=== PATIENT | male | born 1940 | race African-American/Black ===

== ENCOUNTER 2016-08-27 08:53 | Inpatient (IN) | payer OTHER ==
--- NOTE | 2016-08-27 09:17 | HP ---
CIWA Score - CIWA Score Nausea/Vomitin-Mild Nausea/No Vomiting Muscle Tremors: 4-Moderate,w/Arms Extend Anxiety: 4-Mod. Anxious/Guarded Agitation: 1-Slight > Activity Paroxysmal Sweats: 1-Minimal Palms Moist Orientation: 1-Uncertain about Date Tacttile Disturbances: 1-Very Mild Itch/Numbness Auditory Disturbances: 2-Mild Harshness/Frighten Visual Disturbances: 1-Very Mild Sensitivity Headache: 1-Very Mild CIWA-Ar Total Score: 17 Admission ROS S - HPI Chief Complaint: I want to stop drinking Allergies/Adverse Reactions: Allergies Allergy/AdvReac Type Severity Reaction Status Date / Time Penicillins Allergy Severe Itching Verified 09/17/12 19:37 History of Present Illness: 75 yo gentleman here for detox from alcohol - last in detox [facility] several months ago. Denies seizures but does have memory problems. Has order of protection by due to his drinking. Exam Limitations: Clinical Condition - Ebola screening Have you traveled outside of the country in the last 21 days: No Have you had contact with anyone from an Ebola affected area: No Do you have a fever: No - Review of Systems Constitutional: Loss of Appetite, Night Sweats, Changes in sleep EENT: reports: No Symptoms Reported Respiratory: reports: No Symptoms reported Cardiac: reports: No Symptoms Reported GI: reports: Poor Appetite : reports: Frequency Musculoskeletal: reports: No Symptoms Reported Integumentary: reports: No Symptoms Reported Neuro: reports: No Symptoms reported Endocrine: reports: No Symptoms Reported Hematology: reports: No Symptoms Reported Psychiatric: reports: Judgement Intact, Mood/Affect Appropiate Other Systems: Reviewed and Negative Patient History - Patient Medical History Hx Asthma: No Hx Chronic Obstructive Pulmonary Disease (COPD): No Hx Cardiac Disorders: No Hx Hypertension: No Hx Seizures: No Hx Diabetes: No Hx Gastrointestinal Disorders: No Hx Genitourinary Disorders: No Hx Sexually Transmitted Disorders: No Hx Renal Disease (ESRD): No Hx Human Immunodeficiency Virus (HIV): No Hx Hepatitis C: No Hx Depression: No Hx Suicide Attempt: No Hx Schizophrenia: No - Patient Surgical History Past Surgical History: No Hx Neurologic Surgery: No Hx Cataract Extraction: No Hx Cardiac Surgery: No Hx Lung Surgery: No Hx Breast Surgery: No Hx Breast Biopsy: No Hx Abdominal Surgery: Yes (ABD. HERNIA REPAIR IN ) Hx Appendectomy: No Hx Cholecystectomy: No Hx Genitourinary Surgery: No Hx Section: No Hx Orthopedic Surgery: No Anesthesia Reaction: No - PPD History Previous Implant?: Yes Documented Results: Negative w/proof Implanted On Prior [facility] Admission?: No Date: 09/19/12 PPD to be Administered?: Yes - Reproductive History Patient is a Female of Child Bearing Age (11 -55 yrs old): No (male) - Smoking Cessation Smoking history: Current every day smoker Have you smoked in the past 12 months: Yes Aproximately how many cigarettes per day: 5 Hx Chewing Tobacco Use: No Initiated information on smoking cessation: Yes 'Breaking Loose' booklet given: 08/27/16 (give on floor) - Substance & Tx. History Hx Alcohol Use: Yes Hx Substance Use: No Substance Use Type: Alcohol Hx Substance Use Treatment: Yes (detox [facility] February 2016) - Substances Abused Alcohol Route: Oral Frequency: Daily Amount used: twelve 8oz beers; 1/5 liquor; 1 pint wine Age of first use: 13 Date of Last Use: 08/27/16 Family Disease History - Family Disease History Family Disease History: CA: Brother (one colon cancer - etoh), Other: Grandparent (snuff and beer - ), Father (no contact), Mother ( - old age, etoh), Brother Admission Physical Exam BHS - Vital Signs Vital Signs: Vital Signs Period Temp Pulse Resp BP Sys/Guzmán Pulse Ox Last 24 Hr 98.2 F 94 20 157/97 - Physical General Appearance: Yes: Nourished, Appropriately Dressed, Mild Distress HEENTM: Yes: Hearing grossly Normal, Normal ENT Inspection, Normocephalic, Normal Voice, Other Respiratory: Yes: Normal Breath Sounds, No Respiratory Distress Neck: Yes: No masses,lesions,Nodules, Supple Breast: Yes: Breast Exam Deferred Cardiology: Yes: Regular Rhythm, Regular Rate Abdominal: Yes: Non Tender, Soft Genitourinary: Yes: Frequency Back: Yes: Normal Inspection Musculoskeletal: Yes: full range of Motion, Gait Steady Extremities: Yes: Normal Inspection, Normal Range of Motion, Non-Tender Neurological: Yes: Fully Oriented, Alert, Normal Mood/Affect Integumentary: Yes: Normal Color, Warm Lymphatic: Yes: Within Normal Limits - Diagnostic (1) Alcohol dependence Current Visit: Yes Status: Chronic (2) Nicotine dependence Current Visit: Yes Status: Chronic Qualifiers: Nicotine product type: cigarettes Substance use status: uncomplicated Qualified Code(s): F17.210 - Nicotine dependence, cigarettes, uncomplicated Cleared for Admission [facility] - Detox or Rehab [facility] Level of Care: Medically Managed Detox Regimen/Protocol: Librium S Breath Alcohol Content Breath Alcohol Content: 0.061
[2016-08-27 09:18] VITALS: BMI 24.1
[2016-08-27] MEDS ORDERED: chlordiazePOXIDE HCL 25 MG CAPSULE PO ONE ×2 (09:37→12:45)
[2016-08-27] MEDS ORDERED: chlordiazePOXIDE HCL 25 MG CAPSULE PO PRN (09:37)
[2016-08-27] MEDS ORDERED: MAG HYDROX/AL HYDROX/SIMETH 30 ML UNIT-DOSE CUP PO PRN (09:37)
[2016-08-27] MEDS ORDERED: LOPERAMIDE HCL 2 MG CAPSULE PO PRN (09:37)
[2016-08-27] MEDS ORDERED: MAGNESIUM CITRATE 300 ML BOTTLE PO PRN (09:37)
[2016-08-27] MEDS ORDERED: MAGNESIUM HYDROX 2400MG/30ML ORAL SUSPENSION 30 ML CUP PO PRN (09:37)
[2016-08-27] MEDS ORDERED: hydrOXYzine PAMOATE 50 MG CAPSULE (FP) PO PRN (09:37)
[2016-08-27] MEDS: PRENATAL VITAMINS W/ FOLIC ACID TABLET (FP) PO SCH (12:43)
[2016-08-27] MEDS: chlordiazePOXIDE HCL 25 MG CAPSULE PO SCH ×2 (17:23→22:14)
--- NOTE | 2016-08-27 18:13 | CONSULT ---
[facility] Psychiatric Consult - Data Date of interview: 08/27/16 Admission source: [facility] Identifying data: Second admission to [facility] for this 75 y/o AA male seeking detox treatment for alcohol dependence.Patient is childless,domiciled, unemployed and supported on SSI benefits. Substance Abuse History: - Smoking Cessation. Smoking history: Current every day smoker. Have you smoked in the past 12 months: Yes. Aproximately how many cigarettes per day: 5. Hx Chewing Tobacco Use: No. Initiated information on smoking cessation: Yes. 'Breaking Loose' booklet given: 08/27/16 (give on floor ). - Substance & Tx. History. Hx Alcohol Use: Yes. Hx Substance Use: No. Substance Use Type: Alcohol. Hx Substance Use Treatment: Yes (detox [facility] February 2016). - Substances Abused. Alcohol. Route: Oral. Frequency: Daily. Amount used: twelve 8oz beers; 1/5 liquor; 1 pint wine. Age of first use: 13. Date of Last Use: 08/27/16 Medical History: Good general health.Remote history of inguinal herniorraphy ( in the 1969's). Psychiatric History: Patient denies. Physical/Sexual Abuse/Trauma History: Patient denies. Mental Status Exam - Mental Status Exam Alert and Oriented to: Time, Place, Person Cognitive Function: Good Patient Appearance: Well Groomed (edentulous) Mood: Hopeful, Euthymic (friendly) Affect: Appropriate, Normal Range Patient Behavior: Fatigued, Appropriate, Cooperative Speech Pattern: Clear Voice Loudness: Normal Thought Process: Goal Oriented Thought Disorder: Not Present Hallucinations: Denies Suicidal Ideation: Denies Homicidal Ideation: Denies Insight/Judgement: Poor Appetite: Good (observed finishing his dinner;ate his entire portion) Muscle strength/Tone: Normal Gait/Station: Normal Psychiatric Findings - Problem List ([place] 1, 2,3) (1) Alcohol dependence Current Visit: Yes Status: Acute (2) Nicotine dependence Current Visit: Yes Status: Acute Qualifiers: Nicotine product type: cigarettes Substance use status: uncomplicated Qualified Code(s): F17.210 - Nicotine dependence, cigarettes, uncomplicated - Initial Treatment Plan Initial Treatment Plan: Psychoeducation.Detoxification in progress.Observation.
[2016-08-27 19:27] LABS: URINE APPEARANCE CLEAR; URINE BILIRUBIN NEGATIVE (NEGATIVE); URINE BLOOD NEGATIVE (NEGATIVE); URINE COLOR YELLOW; URINE GLUCOSE (UA) NEGATIVE (NEGATIVE); URINE KETONE NEGATIVE (NEGATIVE); URINE LEUK ESTERASE NEGATIVE (NEGATIVE); URINE NITRITE NEGATIVE (NEGATIVE); URINE PROTEIN NEGATIVE (NEGATIVE); URINE UROBILINOGEN NEGATIVE E.U./dl (0.2-1.0)
[2016-08-27] MEDS: diphenhydrAMINE HCL 50 MG CAPSULE PO PRN (22:14)
[2016-08-27] MEDS: THIAMINE HCL 100 MG TABLET (FP) PO SCH (22:14)
[2016-08-28] MEDS: chlordiazePOXIDE HCL 25 MG CAPSULE PO SCH ×4 (05:31→22:10)
[2016-08-28] MEDS: ACETAMINOPHEN 325 MG TABLET (FP) PO PRN ×2 (05:33→22:10)
[2016-08-28] MEDS: PRENATAL VITAMINS W/ FOLIC ACID TABLET (FP) PO SCH (10:15)
[2016-08-28 10:28] LABS: MCH 30.8 pg (25.7-33.7); MCHC 33.7 g/dl (32.0-35.9); MEAN CELL VOLUME 91.4 fl (80-96); MEAN PLT VOLUME 8.1 fl (7.5-11.1); PLATELET COUNT 261 K/MM3 (134-434); RDW 15.1 % (11.9-15.9); WHITE BLOOD COUNT 5.6 K/mm3 (4.0-10.0)
[2016-08-28 10:52] LABS: ALBUMIN 3.9 g/dl (3.4-5.0); ALK PHOS 103 U/L (45-117); ANION GAP 13 (8-16); BILIRUBIN,TOTAL 1.1 mg/dL (0.2-1.0); CALCIUM 9.3 mg/dL (8.5-10.1); CO2 26 mmol/L (21-32); CREATININE 0.7 mg/dL (0.7-1.3); GLUCOSE,RANDOM 93 mg/dL (74-106); SGOT/AST 45 U/L (15-37); SGPT/ALT 26 U/L (12-78); TOT PROT 7.4 g/dl (6.4-8.2)
--- NOTE | 2016-08-28 14:40 | PN ---
S CIWA - CIWA Score Nausea/Vomitin Muscle Tremors: 4-Moderate,w/Arms Extend Anxiety: 4-Mod. Anxious/Guarded Agitation: 3 Paroxysmal Sweats: No Perspiration Orientation: 0-Oriented Tacttile Disturbances: 0-None Auditory Disturbances: 0-None Visual Disturbances: 0-None Headache: 3-Moderate CIWA-Ar Total Score: 16 BHS Progress Note (SOAP) Subjective: Headache, nausea, sweating, tremor, interrupted sleep Objective: 08/28/16 14:38 Last Vital Signs Temp Pulse Resp BP Pulse Ox 98.1 F 104 H 18 142/77 08/28/16 06:41 08/28/16 06:41 08/28/16 06:41 08/28/16 06:41 Laboratory Tests 08/27/16 08/28/16 08/28/16 Unknown 08:00 08:00 WBC 5.6 RBC 4.44 Hgb 13.7 D Hct 40.6 MCV 91.4 MCHC 33.7 RDW 15.1 D Plt Count 261 MPV 8.1 Sodium 139 Potassium 3.7 Chloride 100 Carbon Dioxide 26 Anion Gap 13 BUN 10 Creatinine 0.7 Creat Clearance w eGFR > 60 Random Glucose 93 Calcium 9.3 Total Bilirubin 1.1 H AST 45 H D ALT 26 Alkaline Phosphatase 103 Total Protein 7.4 Albumin 3.9 Urine Color Yellow Urine Appearance Clear Urine pH 6.0 Ur Specific [place] 1.010 Urine Protein Negative Urine Glucose (UA) Negative Urine Ketones Negative Urine Blood Negative Urine Nitrite Negative Urine Bilirubin Negative Urine Urobilinogen Negative Ur Leukocyte Esterase Negative RPR Titer 08/28/16 08:00 WBC RBC Hgb Hct MCV MCHC RDW Plt Count MPV Sodium Potassium Chloride Carbon Dioxide Anion Gap BUN Creatinine Creat Clearance w eGFR Random Glucose Calcium Total Bilirubin AST ALT Alkaline Phosphatase Total Protein Albumin Urine Color Urine Appearance Urine pH Ur Specific [place] Urine Protein Urine Glucose (UA) Urine Ketones Urine Blood Urine Nitrite Urine Bilirubin Urine Urobilinogen Ur Leukocyte Esterase RPR Titer Nonreactive Labs noted Assessment: 08/28/16 14:39 Withdrawal symptoms Plan: Continue detox
[2016-08-28] MEDS: diphenhydrAMINE HCL 50 MG CAPSULE PO PRN (22:10)
[2016-08-28] MEDS: THIAMINE HCL 100 MG TABLET (FP) PO SCH (22:10)
[2016-08-29] MEDS: chlordiazePOXIDE HCL 25 MG CAPSULE PO SCH ×2 (05:47→10:19)
[2016-08-29] MEDS: PRENATAL VITAMINS W/ FOLIC ACID TABLET (FP) PO SCH (10:19)
--- NOTE | 2016-08-29 10:33 | PN ---
S CIWA - CIWA Score Nausea/Vomitin-No Nausea/No Vomiting Muscle Tremors: 3 Anxiety: 4-Mod. Anxious/Guarded Agitation: 3 Paroxysmal Sweats: 3 Orientation: 0-Oriented Tacttile Disturbances: 0-None Auditory Disturbances: 0-None Visual Disturbances: 0-None Headache: 0-None Present CIWA-Ar Total Score: 13 BHS Progress Note (SOAP) Subjective: Anxiety,tremors,sweating,interrupted sleep,restless Objective: 08/29/16 10:31 Vital Signs - 8 hr 08/29/16 08/29/16 08/29/16 03:30 06:25 09:37 Temperature 97.1 F L 97 F L Pulse Rate 90 99 H Respiratory 18 18 18 Rate Blood Pressure 136/79 119/67 Laboratory Tests 08/27/16 08/28/16 08/28/16 Unknown 08:00 08:00 WBC 5.6 RBC 4.44 Hgb 13.7 D Hct 40.6 MCV 91.4 MCHC 33.7 RDW 15.1 D Plt Count 261 MPV 8.1 Sodium 139 Potassium 3.7 Chloride 100 Carbon Dioxide 26 Anion Gap 13 BUN 10 Creatinine 0.7 Creat Clearance w eGFR > 60 Random Glucose 93 Calcium 9.3 Total Bilirubin 1.1 H AST 45 H D ALT 26 Alkaline Phosphatase 103 Total Protein 7.4 Albumin 3.9 Urine Color Yellow Urine Appearance Clear Urine pH 6.0 Ur Specific [place] 1.010 Urine Protein Negative Urine Glucose (UA) Negative Urine Ketones Negative Urine Blood Negative Urine Nitrite Negative Urine Bilirubin Negative Urine Urobilinogen Negative Ur Leukocyte Esterase Negative RPR Titer 08/28/16 08:00 WBC RBC Hgb Hct MCV MCHC RDW Plt Count MPV Sodium Potassium Chloride Carbon Dioxide Anion Gap BUN Creatinine Creat Clearance w eGFR Random Glucose Calcium Total Bilirubin AST ALT Alkaline Phosphatase Total Protein Albumin Urine Color Urine Appearance Urine pH Ur Specific [place] Urine Protein Urine Glucose (UA) Urine Ketones Urine Blood Urine Nitrite Urine Bilirubin Urine Urobilinogen Ur Leukocyte Esterase RPR Titer Nonreactive labs noted Assessment: 08/29/16 10:32 Withdrawal sx Plan: Continue detox
[2016-08-29] MEDS: chlordiazePOXIDE 5 MG CAPSULE PO SCH ×2 (17:46→22:11)
[2016-08-29] MEDS: ACETAMINOPHEN 325 MG TABLET (FP) PO PRN (17:48)
[2016-08-29] MEDS: diphenhydrAMINE HCL 50 MG CAPSULE PO PRN (22:11)
[2016-08-29] MEDS: THIAMINE HCL 100 MG TABLET (FP) PO SCH (22:11)
[2016-08-30] MEDS: chlordiazePOXIDE 5 MG CAPSULE PO SCH ×2 (05:26→10:16)
[2016-08-30] MEDS: guaiFENesin/D-METHORPHAN HB 10 ML UNIT-DOSE CUPS PO PRN (05:26)
[2016-08-30] MEDS: PRENATAL VITAMINS W/ FOLIC ACID TABLET (FP) PO SCH (10:16)
--- NOTE | 2016-08-30 10:22 | PN ---
BHS Progress Note (SOAP) Subjective: Sweating,interrupted sleep,restless Objective: 08/30/16 10:21 Vital Signs - 8 hr 08/30/16 08/30/16 06:09 09:29 Temperature 99.1 F 98.7 F Pulse Rate 97 H 101 H Respiratory 18 20 Rate Blood Pressure 144/78 160/85 Laboratory Tests 08/27/16 08/28/16 08/28/16 Unknown 08:00 08:00 WBC 5.6 RBC 4.44 Hgb 13.7 D Hct 40.6 MCV 91.4 MCHC 33.7 RDW 15.1 D Plt Count 261 MPV 8.1 Sodium 139 Potassium 3.7 Chloride 100 Carbon Dioxide 26 Anion Gap 13 BUN 10 Creatinine 0.7 Creat Clearance w eGFR > 60 Random Glucose 93 Calcium 9.3 Total Bilirubin 1.1 H AST 45 H D ALT 26 Alkaline Phosphatase 103 Total Protein 7.4 Albumin 3.9 Urine Color Yellow Urine Appearance Clear Urine pH 6.0 Ur Specific [place] 1.010 Urine Protein Negative Urine Glucose (UA) Negative Urine Ketones Negative Urine Blood Negative Urine Nitrite Negative Urine Bilirubin Negative Urine Urobilinogen Negative Ur Leukocyte Esterase Negative RPR Titer 08/28/16 08:00 WBC RBC Hgb Hct MCV MCHC RDW Plt Count MPV Sodium Potassium Chloride Carbon Dioxide Anion Gap BUN Creatinine Creat Clearance w eGFR Random Glucose Calcium Total Bilirubin AST ALT Alkaline Phosphatase Total Protein Albumin Urine Color Urine Appearance Urine pH Ur Specific [place] Urine Protein Urine Glucose (UA) Urine Ketones Urine Blood Urine Nitrite Urine Bilirubin Urine Urobilinogen Ur Leukocyte Esterase RPR Titer Nonreactive labs noted Assessment: 08/30/16 10:21 Withdrawal sx. Plan: Continue detox
[2016-08-30] MEDS: chlordiazePOXIDE HCL 10 MG CAPSULE PO SCH ×2 (17:27→22:14)
[2016-08-30] MEDS: ACETAMINOPHEN 325 MG TABLET (FP) PO PRN (18:58)
[2016-08-30] MEDS: THIAMINE HCL 100 MG TABLET (FP) PO SCH (22:14)
[2016-08-30] MEDS: diphenhydrAMINE HCL 50 MG CAPSULE PO PRN (22:14)
--- NOTE | 2016-08-30 23:40 | EKG ---
Test Reason : Blood Pressure : / mmHG Vent. Rate : 090 BPM Atrial Rate : 090 BPM P-R Int : 180 ms QRS Dur : 086 ms QT Int : 386 ms P-R-T Axes : 061 038 037 degrees QTc Int : 472 ms NORMAL SINUS RHYTHM NORMAL ECG NO PREVIOUS ECGS AVAILABLE Confirmed by GERA WILLARD MD ([id number]) on 08/30/2016 11:40:30 PM Referred By: Confirmed By:GERA WILLARD MD
[2016-08-31] MEDS: chlordiazePOXIDE HCL 10 MG CAPSULE PO SCH ×2 (05:59→10:09)
[2016-08-31] MEDS: ACETAMINOPHEN 325 MG TABLET (FP) PO PRN ×2 (10:09→22:14)
[2016-08-31] MEDS: PRENATAL VITAMINS W/ FOLIC ACID TABLET (FP) PO SCH (10:09)
--- NOTE | 2016-08-31 15:05 | PN ---
BHS Progress Note (SOAP) Subjective: Sweating,interrupted sleep,restless Objective: 08/31/16 15:03 Vital Signs - 8 hr 08/31/16 08/31/16 09:26 13:01 Temperature 96.0 F L 97.2 F L Pulse Rate 98 H 94 H Respiratory 20 18 Rate Blood Pressure 163/88 145/82 Laboratory Last Values WBC 5.6 K/mm3 (4.0-10.0) 08/28/16 08:00 RBC 4.44 M/mm3 (4.00-5.60) 08/28/16 08:00 Hgb 13.7 GM/dL (11.7-16.9) D 08/28/16 08:00 Hct 40.6 % (35.4-49) 08/28/16 08:00 MCV 91.4 fl (80-96) 08/28/16 08:00 MCHC 33.7 g/dl (32.0-35.9) 08/28/16 08:00 RDW 15.1 % (11.9-15.9) D 08/28/16 08:00 Plt Count 261 K/MM3 (134-434) 08/28/16 08:00 MPV 8.1 fl (7.5-11.1) 08/28/16 08:00 Sodium 139 mmol/L (136-145) 08/28/16 08:00 Potassium 3.7 mmol/L (3.5-5.1) 08/28/16 08:00 Chloride 100 mmol/L (98-107) 08/28/16 08:00 Carbon Dioxide 26 mmol/L (21-32) 08/28/16 08:00 Anion Gap 13 (8-16) 08/28/16 08:00 BUN 10 mg/dL (7-18) 08/28/16 08:00 Creatinine 0.7 mg/dL (0.7-1.3) 08/28/16 08:00 Creat Clearance w eGFR > 60 (>60) 08/28/16 08:00 Random Glucose 93 mg/dL (74-106) 08/28/16 08:00 Calcium 9.3 mg/dL (8.5-10.1) 08/28/16 08:00 Total Bilirubin 1.1 mg/dL (0.2-1.0) H 08/28/16 08:00 AST 45 U/L (15-37) H D 08/28/16 08:00 ALT 26 U/L (12-78) 08/28/16 08:00 Alkaline Phosphatase 103 U/L (45-117) 08/28/16 08:00 Total Protein 7.4 g/dl (6.4-8.2) 08/28/16 08:00 Albumin 3.9 g/dl (3.4-5.0) 08/28/16 08:00 Urine Color Yellow 08/27/16 Unknown Urine Appearance Clear 08/27/16 Unknown Urine pH 6.0 (5.0-8.0) 08/27/16 Unknown Ur Specific [place] 1.010 (1.001-1.035) 08/27/16 Unknown Urine Protein Negative (NEGATIVE) 08/27/16 Unknown Urine Glucose (UA) Negative (NEGATIVE) 08/27/16 Unknown Urine Ketones Negative (NEGATIVE) 08/27/16 Unknown Urine Blood Negative (NEGATIVE) 08/27/16 Unknown Urine Nitrite Negative (NEGATIVE) 08/27/16 Unknown Urine Bilirubin Negative (NEGATIVE) 08/27/16 Unknown Urine Urobilinogen Negative E.U./dl (0.2-1.0) 08/27/16 Unknown Ur Leukocyte Esterase Negative (NEGATIVE) 08/27/16 Unknown RPR Titer Nonreactive (NONREACTIVE) 08/28/16 08:00 labs noted Assessment: 08/31/16 15:04 Withdrawal sx. Plan: Continue detox
[2016-08-31] MEDS: diphenhydrAMINE HCL 50 MG CAPSULE PO PRN (22:14)
[2016-08-31] MEDS: THIAMINE HCL 100 MG TABLET (FP) PO SCH (22:14)
[2016-09-01] MEDS: guaiFENesin/D-METHORPHAN HB 10 ML UNIT-DOSE CUPS PO PRN ×2 (08:55→19:03)
--- NOTE | 2016-09-01 09:28 | DS ---
[facility] Detox Discharge Summary Admission Date: 08/27/16 Discharge Date: 09/01/16 - History Present History: Alcohol Dependence Pertinent Past History: Denies - Physical Exam Results Vital Signs: Vital Signs Temperature 97.9 F 09/01/16 09:12 Pulse Rate 93 H 09/01/16 09:12 Respiratory Rate 18 09/01/16 09:12 Blood Pressure 165/86 09/01/16 09:12 O2 Sat by Pulse Oximetry (%) Pertinent Admission Physical Exam Findings: withdrawal sx. Laboratory Tests 08/27/16 08/28/16 08/28/16 Unknown 08:00 08:00 WBC 5.6 RBC 4.44 Hgb 13.7 D Hct 40.6 MCV 91.4 MCHC 33.7 RDW 15.1 D Plt Count 261 MPV 8.1 Sodium 139 Potassium 3.7 Chloride 100 Carbon Dioxide 26 Anion Gap 13 BUN 10 Creatinine 0.7 Creat Clearance w eGFR > 60 Random Glucose 93 Calcium 9.3 Total Bilirubin 1.1 H AST 45 H D ALT 26 Alkaline Phosphatase 103 Total Protein 7.4 Albumin 3.9 Urine Color Yellow Urine Appearance Clear Urine pH 6.0 Ur Specific [place] 1.010 Urine Protein Negative Urine Glucose (UA) Negative Urine Ketones Negative Urine Blood Negative Urine Nitrite Negative Urine Bilirubin Negative Urine Urobilinogen Negative Ur Leukocyte Esterase Negative RPR Titer 08/28/16 08:00 WBC RBC Hgb Hct MCV MCHC RDW Plt Count MPV Sodium Potassium Chloride Carbon Dioxide Anion Gap BUN Creatinine Creat Clearance w eGFR Random Glucose Calcium Total Bilirubin AST ALT Alkaline Phosphatase Total Protein Albumin Urine Color Urine Appearance Urine pH Ur Specific [place] Urine Protein Urine Glucose (UA) Urine Ketones Urine Blood Urine Nitrite Urine Bilirubin Urine Urobilinogen Ur Leukocyte Esterase RPR Titer Nonreactive labs noted - Treatment Hospital Course: Detox Protocol Followed, Detoxed Safely, Responded well, Discharged Condition Good, Rehab Referral Accepted Patient has Accepted a Rehab Referral to: [facility] - Medication Discharge Medications: Ambulatory Orders NK [No Known Home Medication] 08/27/16 - Diagnosis (1) Nicotine dependence Current Visit: Yes Status: Acute Qualifiers: Nicotine product type: cigarettes Substance use status: uncomplicated Qualified Code(s): F17.210 - Nicotine dependence, cigarettes, uncomplicated (2) Alcohol dependence with uncomplicated withdrawal Current Visit: Yes Status: Acute - AMA Did Patient Leave Against Medical Advice: No
[2016-09-01] MEDS: PRENATAL VITAMINS W/ FOLIC ACID TABLET (FP) PO SCH (10:25)
[2016-09-01] MEDS: ACETAMINOPHEN 325 MG TABLET (FP) PO PRN ×2 (10:27→21:39)
[2016-09-01] MEDS: THIAMINE HCL 100 MG TABLET (FP) PO SCH (21:39)
[2016-09-01] MEDS: diphenhydrAMINE HCL 50 MG CAPSULE PO PRN (21:39)
[2016-09-02] MEDS: guaiFENesin/D-METHORPHAN HB 10 ML UNIT-DOSE CUPS PO PRN ×3 (07:06→21:42)
[2016-09-02] MEDS: P-EPHED 60MG/TRIPROLIDI 2.5MG TABLET PO PRN ×2 (08:50→21:41)
[2016-09-02] MEDS: MENTHOL/PHENOL 1 EACH UD MM PRN ×2 (08:50→18:21)
[2016-09-02] MEDS: PRENATAL VITAMINS W/ FOLIC ACID TABLET (FP) PO SCH (10:26)
[2016-09-02] MEDS: ACETAMINOPHEN 325 MG TABLET (FP) PO PRN ×2 (11:59→21:42)
[2016-09-02] MEDS ORDERED: ALBUTEROL SO4 2.5/IPRATROPIUM 0.5 INH SOL 3 ML VIAL.NEB. NEB PRN (12:08)
--- NOTE | 2016-09-02 12:13 | PN ---
S Progress Note Note: coughing for 4 days,yellowish mucous,lung no clear,afebrile acute bronchitis treatment zithromax 500 mgs po now then 25o mgs po daily from 09/03/16 to duoneb nebebulizer q6h prn chest xray close monitoring
[2016-09-02] MEDS ORDERED: AZITHROMYCIN 250 MG TABLET (FP) PO ONE (13:00)
--- NOTE | 2016-09-02 13:32 | HP ---
Psychiatrist Admission - Data Date of interview: 09/02/16 Admission source: 3N Identifying data: THis is the first [facility] inpatient rehabilitation admission for this 75 year old AA male who is childless, domiciled, unemployed and supported on SSI benefits. Medical History: Good general health, history of inguinal herniorraphy (in the 1970's).Smokes cigarettes 5 a day. Psychiatric History: Denies history of psychiatric treatment. Physical/Sexual Abuse/Trauma History: Denies Vital Signs: Vital Signs - 24 hr 09/02/16 09/02/16 09/02/16 00:30 03:30 07:01 Temperature 98.2 F Pulse Rate 108 H Respiratory 18 18 18 Rate Blood Pressure 128/88 Allergies/Adverse Reactions: Allergies Allergy/AdvReac Type Severity Reaction Status Date / Time Penicillins Allergy Severe Itching Verified 09/01/16 12:56 Date of last physical exam: 08/27/16 Concur with the findings of this exam: Yes - Substance Abuse/Tx History Hx Alcohol Use: Yes (1/5 liqor , 1 pint of wine, twelve 8 oz of beer) Hx Substance Use: No Substance Use Type: None Hx Substance Use Treatment: Yes ([facility] in 2016) - Admission Criteria Previous failed treatment: Yes Poor recovery environment: Yes Comorbidities: No Lacks judgement: Yes Mental Status Exam - Mental Status Exam Alert and Oriented to: Place, Person Cognitive Function: Grossly Intact Patient Appearance: Well Groomed Mood: Sad Affect: Mood Congruent Patient Behavior: Appropriate, Cooperative Speech Pattern: Clear, Appropriate Voice Loudness: Normal Thought Process: Intact, Goal Oriented Thought Disorder: Not Present Hallucinations: Denies Suicidal Ideation: Denies Homicidal Ideation: Denies Insight/Judgement: Good Sleep: Fair Appetite: Fair Muscle strength/Tone: Normal Gait/Station: Normal Psychiatric Findings - Problem List ([place] 1, 2,3) (1) Alcohol dependence Current Visit: Yes Status: Acute (2) Nicotine dependence Current Visit: Yes Status: Acute Qualifiers: Nicotine product type: cigarettes Substance use status: uncomplicated Qualified Code(s): F17.210 - Nicotine dependence, cigarettes, uncomplicated - Initial Treatment Plan Initial Treatment Plan: monitor progress as needed.
[2016-09-02] MEDS: THIAMINE HCL 100 MG TABLET (FP) PO SCH (21:42)
[2016-09-02] MEDS: diphenhydrAMINE HCL 50 MG CAPSULE PO PRN (21:43)
[2016-09-03] MEDS: PRENATAL VITAMINS W/ FOLIC ACID TABLET (FP) PO SCH (10:45)
[2016-09-03] MEDS: AZITHROMYCIN 250 MG TABLET (FP) PO SCH (10:45)
[2016-09-03] MEDS: guaiFENesin/D-METHORPHAN HB 10 ML UNIT-DOSE CUPS PO PRN (10:45)
[2016-09-03] MEDS: THIAMINE HCL 100 MG TABLET (FP) PO SCH (21:23)
[2016-09-03] MEDS: diphenhydrAMINE HCL 50 MG CAPSULE PO PRN (21:23)
[2016-09-03] MEDS: IBUPROFEN 400 MG TABLET (FP) PO PRN (21:24)
[2016-09-04] MEDS: guaiFENesin/D-METHORPHAN HB 10 ML UNIT-DOSE CUPS PO PRN ×2 (09:02→21:28)
[2016-09-04] MEDS: AZITHROMYCIN 250 MG TABLET (FP) PO SCH (09:02)
[2016-09-04] MEDS: IBUPROFEN 400 MG TABLET (FP) PO PRN ×2 (09:02→19:40)
[2016-09-04] MEDS: PRENATAL VITAMINS W/ FOLIC ACID TABLET (FP) PO SCH (09:02)
[2016-09-04] MEDS: P-EPHED 60MG/TRIPROLIDI 2.5MG TABLET PO PRN (09:02)
[2016-09-04] MEDS: THIAMINE HCL 100 MG TABLET (FP) PO SCH (21:28)
[2016-09-04] MEDS: diphenhydrAMINE HCL 50 MG CAPSULE PO PRN (21:28)
[2016-09-04] MEDS: ACETAMINOPHEN 325 MG TABLET (FP) PO PRN (21:29)
[2016-09-05] MEDS: IBUPROFEN 400 MG TABLET (FP) PO PRN ×2 (06:05→18:03)
[2016-09-05] MEDS: PRENATAL VITAMINS W/ FOLIC ACID TABLET (FP) PO SCH (09:53)
[2016-09-05] MEDS: AZITHROMYCIN 250 MG TABLET (FP) PO SCH (09:53)
[2016-09-05] MEDS: ACETAMINOPHEN 325 MG TABLET (FP) PO PRN ×2 (09:55→21:15)
[2016-09-05] MEDS: guaiFENesin/D-METHORPHAN HB 10 ML UNIT-DOSE CUPS PO PRN ×2 (12:02→21:14)
[2016-09-05] MEDS: MENTHOL/PHENOL 1 EACH UD MM PRN (18:03)
[2016-09-05] MEDS: THIAMINE HCL 100 MG TABLET (FP) PO SCH (21:14)
[2016-09-06] MEDS: ACETAMINOPHEN 325 MG TABLET (FP) PO PRN ×2 (02:48→16:54)
[2016-09-06] MEDS: PRENATAL VITAMINS W/ FOLIC ACID TABLET (FP) PO SCH (09:40)
[2016-09-06] MEDS: guaiFENesin/D-METHORPHAN HB 10 ML UNIT-DOSE CUPS PO PRN (09:40)
[2016-09-06] MEDS: diphenhydrAMINE HCL 50 MG CAPSULE PO PRN (21:08)
[2016-09-06] MEDS: THIAMINE HCL 100 MG TABLET (FP) PO SCH (21:08)
[2016-09-06] MEDS: IBUPROFEN 400 MG TABLET (FP) PO PRN (21:08)
[2016-09-07] MEDS: PRENATAL VITAMINS W/ FOLIC ACID TABLET (FP) PO SCH (09:43)
[2016-09-07] MEDS: guaiFENesin/D-METHORPHAN HB 10 ML UNIT-DOSE CUPS PO PRN ×2 (09:43→21:05)
[2016-09-07] MEDS: IBUPROFEN 400 MG TABLET (FP) PO PRN (09:43)
[2016-09-07] MEDS: diphenhydrAMINE HCL 50 MG CAPSULE PO PRN (21:05)
[2016-09-07] MEDS: ACETAMINOPHEN 325 MG TABLET (FP) PO PRN (21:05)
[2016-09-07] MEDS: THIAMINE HCL 100 MG TABLET (FP) PO SCH (21:05)
[2016-09-08] MEDS: IBUPROFEN 400 MG TABLET (FP) PO PRN (06:34)
[2016-09-08] MEDS: guaiFENesin/D-METHORPHAN HB 10 ML UNIT-DOSE CUPS PO PRN ×2 (06:37→21:26)
[2016-09-08] MEDS: PRENATAL VITAMINS W/ FOLIC ACID TABLET (FP) PO SCH (09:57)
[2016-09-08] MEDS: THIAMINE HCL 100 MG TABLET (FP) PO SCH (21:26)
[2016-09-08] MEDS: ACETAMINOPHEN 325 MG TABLET (FP) PO PRN (21:26)
[2016-09-08] MEDS: diphenhydrAMINE HCL 50 MG CAPSULE PO PRN (21:26)
[2016-09-09] MEDS: IBUPROFEN 400 MG TABLET (FP) PO PRN ×2 (09:41→17:51)
[2016-09-09] MEDS: PRENATAL VITAMINS W/ FOLIC ACID TABLET (FP) PO SCH (09:41)
[2016-09-09] MEDS: guaiFENesin/D-METHORPHAN HB 10 ML UNIT-DOSE CUPS PO PRN (09:41)
[2016-09-09] MEDS: THIAMINE HCL 100 MG TABLET (FP) PO SCH (21:08)
[2016-09-09] MEDS: ACETAMINOPHEN 325 MG TABLET (FP) PO PRN (21:09)
[2016-09-10] MEDS: IBUPROFEN 400 MG TABLET (FP) PO PRN ×2 (06:31→14:22)
[2016-09-10] MEDS: guaiFENesin/D-METHORPHAN HB 10 ML UNIT-DOSE CUPS PO PRN ×2 (06:31→21:29)
[2016-09-10] MEDS: ACETAMINOPHEN 325 MG TABLET (FP) PO PRN ×2 (10:38→21:29)
[2016-09-10] MEDS: PRENATAL VITAMINS W/ FOLIC ACID TABLET (FP) PO SCH (10:38)
[2016-09-10] MEDS: THIAMINE HCL 100 MG TABLET (FP) PO SCH (21:29)
[2016-09-10] MEDS: diphenhydrAMINE HCL 50 MG CAPSULE PO PRN (21:29)
[2016-09-11] MEDS: PRENATAL VITAMINS W/ FOLIC ACID TABLET (FP) PO SCH (10:46)
[2016-09-11] MEDS: guaiFENesin/D-METHORPHAN HB 10 ML UNIT-DOSE CUPS PO PRN ×2 (10:46→19:42)
[2016-09-11] MEDS: ACETAMINOPHEN 325 MG TABLET (FP) PO PRN (10:46)
[2016-09-11] MEDS: IBUPROFEN 400 MG TABLET (FP) PO PRN ×2 (14:22→21:20)
[2016-09-11] MEDS: MENTHOL/PHENOL 1 EACH UD MM PRN (19:43)
[2016-09-11] MEDS: THIAMINE HCL 100 MG TABLET (FP) PO SCH (21:20)
[2016-09-11] MEDS: diphenhydrAMINE HCL 50 MG CAPSULE PO PRN (21:20)
[2016-09-12] MEDS: guaiFENesin/D-METHORPHAN HB 10 ML UNIT-DOSE CUPS PO PRN ×2 (06:30→14:59)
[2016-09-12] MEDS: IBUPROFEN 400 MG TABLET (FP) PO PRN ×2 (06:30→14:59)
[2016-09-12] MEDS: PRENATAL VITAMINS W/ FOLIC ACID TABLET (FP) PO SCH (10:51)
[2016-09-12] MEDS: THIAMINE HCL 100 MG TABLET (FP) PO SCH (21:14)
[2016-09-12] MEDS: diphenhydrAMINE HCL 50 MG CAPSULE PO PRN (21:16)
[2016-09-13] MEDS: IBUPROFEN 400 MG TABLET (FP) PO PRN ×2 (09:53→21:25)
[2016-09-13] MEDS: guaiFENesin/D-METHORPHAN HB 10 ML UNIT-DOSE CUPS PO PRN (09:53)
[2016-09-13] MEDS: PRENATAL VITAMINS W/ FOLIC ACID TABLET (FP) PO SCH (09:53)
[2016-09-13] MEDS: MENTHOL/PHENOL 1 EACH UD MM PRN (14:26)
[2016-09-13] MEDS: THIAMINE HCL 100 MG TABLET (FP) PO SCH (21:25)
[2016-09-13] MEDS: diphenhydrAMINE HCL 50 MG CAPSULE PO PRN (21:25)
[2016-09-14] MEDS: guaiFENesin/D-METHORPHAN HB 10 ML UNIT-DOSE CUPS PO PRN ×2 (06:22→21:45)
[2016-09-14] MEDS: IBUPROFEN 400 MG TABLET (FP) PO PRN ×2 (06:22→18:59)
[2016-09-14] MEDS: PRENATAL VITAMINS W/ FOLIC ACID TABLET (FP) PO SCH (09:59)
[2016-09-14] MEDS: THIAMINE HCL 100 MG TABLET (FP) PO SCH (21:45)
[2016-09-14] MEDS: diphenhydrAMINE HCL 50 MG CAPSULE PO PRN (21:46)
[2016-09-15] MEDS: guaiFENesin/D-METHORPHAN HB 10 ML UNIT-DOSE CUPS PO PRN ×2 (06:19→21:40)
[2016-09-15] MEDS: IBUPROFEN 400 MG TABLET (FP) PO PRN ×2 (06:19→21:39)
[2016-09-15] MEDS: PRENATAL VITAMINS W/ FOLIC ACID TABLET (FP) PO SCH (09:40)
[2016-09-15] MEDS: ACETAMINOPHEN 325 MG TABLET (FP) PO PRN (09:40)
[2016-09-15] MEDS: diphenhydrAMINE HCL 50 MG CAPSULE PO PRN (21:39)
[2016-09-15] MEDS: THIAMINE HCL 100 MG TABLET (FP) PO SCH (21:39)
[2016-09-16] MEDS: IBUPROFEN 400 MG TABLET (FP) PO PRN ×2 (06:28→21:49)
[2016-09-16] MEDS: guaiFENesin/D-METHORPHAN HB 10 ML UNIT-DOSE CUPS PO PRN ×2 (06:28→21:49)
[2016-09-16] MEDS: ACETAMINOPHEN 325 MG TABLET (FP) PO PRN (09:39)
[2016-09-16] MEDS: PRENATAL VITAMINS W/ FOLIC ACID TABLET (FP) PO SCH (09:39)
[2016-09-16] MEDS: LIDOCAINE 5% TOPICAL PATCH TP SCH (13:11)
[2016-09-16] MEDS: THIAMINE HCL 100 MG TABLET (FP) PO SCH (21:48)
[2016-09-16] MEDS: diphenhydrAMINE HCL 50 MG CAPSULE PO PRN (21:49)
[2016-09-17] MEDS: guaiFENesin/D-METHORPHAN HB 10 ML UNIT-DOSE CUPS PO PRN (09:33)
[2016-09-17] MEDS: PRENATAL VITAMINS W/ FOLIC ACID TABLET (FP) PO SCH (09:33)
[2016-09-17] MEDS: IBUPROFEN 400 MG TABLET (FP) PO PRN (09:33)
[2016-09-17] MEDS: LIDOCAINE 5% TOPICAL PATCH TP SCH (09:33)
[2016-09-17] MEDS: THIAMINE HCL 100 MG TABLET (FP) PO SCH (22:02)
[2016-09-17] MEDS: ACETAMINOPHEN 325 MG TABLET (FP) PO PRN (22:03)
[2016-09-17] MEDS: diphenhydrAMINE HCL 50 MG CAPSULE PO PRN (22:04)
[2016-09-18] MEDS: PRENATAL VITAMINS W/ FOLIC ACID TABLET (FP) PO SCH (10:27)
[2016-09-18] MEDS: LIDOCAINE 5% TOPICAL PATCH TP SCH (10:27)
[2016-09-18] MEDS: diphenhydrAMINE HCL 50 MG CAPSULE PO PRN (22:02)
[2016-09-18] MEDS: THIAMINE HCL 100 MG TABLET (FP) PO SCH (22:02)
[2016-09-18] MEDS: IBUPROFEN 400 MG TABLET (FP) PO PRN (22:03)
[2016-09-19] MEDS: LIDOCAINE 5% TOPICAL PATCH TP SCH (10:14)
[2016-09-19] MEDS: PRENATAL VITAMINS W/ FOLIC ACID TABLET (FP) PO SCH (10:14)
[2016-09-19] MEDS: IBUPROFEN 400 MG TABLET (FP) PO PRN (10:15)
[2016-09-19] MEDS: diphenhydrAMINE HCL 50 MG CAPSULE PO PRN (22:09)
[2016-09-19] MEDS: THIAMINE HCL 100 MG TABLET (FP) PO SCH (22:09)
[2016-09-20] MEDS: ACETAMINOPHEN 325 MG TABLET (FP) PO PRN (10:05)
[2016-09-20] MEDS: PRENATAL VITAMINS W/ FOLIC ACID TABLET (FP) PO SCH (10:05)
[2016-09-20] MEDS: LIDOCAINE 5% TOPICAL PATCH TP SCH (10:06)
[2016-09-20] MEDS: THIAMINE HCL 100 MG TABLET (FP) PO SCH (21:54)
[2016-09-20] MEDS: diphenhydrAMINE HCL 50 MG CAPSULE PO PRN (21:54)
[2016-09-21] MEDS: PRENATAL VITAMINS W/ FOLIC ACID TABLET (FP) PO SCH (09:38)
[2016-09-21] MEDS: LIDOCAINE 5% TOPICAL PATCH TP SCH (09:38)
[2016-09-21] MEDS: diphenhydrAMINE HCL 50 MG CAPSULE PO PRN (22:08)
[2016-09-21] MEDS: THIAMINE HCL 100 MG TABLET (FP) PO SCH (22:08)
[2016-09-22] MEDS: PRENATAL VITAMINS W/ FOLIC ACID TABLET (FP) PO SCH (10:41)
[2016-09-22] MEDS: LIDOCAINE 5% TOPICAL PATCH TP SCH (10:41)
[2016-09-22] MEDS: THIAMINE HCL 100 MG TABLET (FP) PO SCH (21:57)
[2016-09-22] MEDS: diphenhydrAMINE HCL 50 MG CAPSULE PO PRN (21:57)
[2016-09-22] MEDS: IBUPROFEN 400 MG TABLET (FP) PO PRN (21:59)
[2016-09-23] MEDS: LIDOCAINE 5% TOPICAL PATCH TP SCH (10:23)
[2016-09-23] MEDS: PRENATAL VITAMINS W/ FOLIC ACID TABLET (FP) PO SCH (10:23)
[2016-09-23] MEDS: diphenhydrAMINE HCL 50 MG CAPSULE PO PRN (21:56)
[2016-09-23] MEDS: IBUPROFEN 400 MG TABLET (FP) PO PRN (21:56)
[2016-09-23] MEDS: THIAMINE HCL 100 MG TABLET (FP) PO SCH (21:56)
[2016-09-24] MEDS: PRENATAL VITAMINS W/ FOLIC ACID TABLET (FP) PO SCH (10:57)
[2016-09-24] MEDS: LIDOCAINE 5% TOPICAL PATCH TP SCH (10:59)
[2016-09-24] MEDS: diphenhydrAMINE HCL 50 MG CAPSULE PO PRN (21:46)
[2016-09-24] MEDS: THIAMINE HCL 100 MG TABLET (FP) PO SCH (21:46)
[2016-09-24] MEDS: IBUPROFEN 400 MG TABLET (FP) PO PRN (21:46)
[2016-09-25] MEDS: PRENATAL VITAMINS W/ FOLIC ACID TABLET (FP) PO SCH (10:48)
[2016-09-25] MEDS: LIDOCAINE 5% TOPICAL PATCH TP SCH (10:48)
[2016-09-25] MEDS: THIAMINE HCL 100 MG TABLET (FP) PO SCH (21:49)
[2016-09-25] MEDS: diphenhydrAMINE HCL 50 MG CAPSULE PO PRN (21:49)
[2016-09-26] MEDS: PRENATAL VITAMINS W/ FOLIC ACID TABLET (FP) PO SCH (10:45)
[2016-09-26] MEDS: LIDOCAINE 5% TOPICAL PATCH TP SCH (10:45)
[2016-09-26] MEDS: diphenhydrAMINE HCL 50 MG CAPSULE PO PRN (21:57)
[2016-09-26] MEDS: THIAMINE HCL 100 MG TABLET (FP) PO SCH (21:57)
[2016-09-26] MEDS: IBUPROFEN 400 MG TABLET (FP) PO PRN (21:57)
[2016-09-27] MEDS: LIDOCAINE 5% TOPICAL PATCH TP SCH (10:43)
[2016-09-27] MEDS: PRENATAL VITAMINS W/ FOLIC ACID TABLET (FP) PO SCH (10:43)
[2016-09-27] MEDS: diphenhydrAMINE HCL 50 MG CAPSULE PO PRN (21:49)
[2016-09-27] MEDS: THIAMINE HCL 100 MG TABLET (FP) PO SCH (21:49)
[2016-09-27] MEDS: ACETAMINOPHEN 325 MG TABLET (FP) PO PRN (21:50)
[2016-09-28] MEDS: LIDOCAINE 5% TOPICAL PATCH TP SCH (10:31)
[2016-09-28] MEDS: PRENATAL VITAMINS W/ FOLIC ACID TABLET (FP) PO SCH (10:31)
[2016-09-28] MEDS: THIAMINE HCL 100 MG TABLET (FP) PO SCH (21:43)
[2016-09-28] MEDS: IBUPROFEN 400 MG TABLET (FP) PO PRN (21:44)
[2016-09-28] MEDS: diphenhydrAMINE HCL 50 MG CAPSULE PO PRN (21:44)
[2016-09-29 07:04] VITALS: BP 140/77; PULSE 81; TEMP 99.1
--- NOTE | 2016-09-29 09:40 | PN ---
Psychiatric Progress Note Vital Signs: Vital Signs Period Temp Pulse Resp BP Sys/Guzmán Pulse Ox Last 24 Hr 99.1 F 81-84 15-18 140-145/77-87 Date of Session: 09/29/16 Chief Complaint:: discharge vist HPI: Patient has addressed alcohol dependence. ROS: WNL Current Medications: Active Medications Generic Name Dose Route Start Last Admin Trade Name Freq PRN Reason Stop Dose Admin Acetaminophen 650 mg 08/27/16 09:37 09/27/16 21:50 Tylenol - PO 650 mg Q4H PRN Administration FEVER OR PAIN Al Hydroxide/Mg Hydroxide 30 ml 08/27/16 09:37 Mylanta Oral Suspension - PO Q6H PRN DYSPEPSIA Diphenhydramine HCl 50 mg 08/27/16 09:37 09/28/16 21:44 Benadryl - PO 50 mg HSMR1 PRN Administration INSOMNIA Eucalyptus/Menthol/Phenol/Sorbitol 1 each 08/27/16 09:37 09/13/16 14:26 Cepastat Lozenge - MM 1 each Q4H PRN Administration SORE THROAT Guaifenesin 10 ml 08/27/16 09:37 09/17/16 09:33 Robitussin Dm - PO 10 ml Q6H PRN Administration COUGH Hydroxyzine Pamoate 50 mg 08/27/16 09:37 09/06/16 06:08 Vistaril - PO 50 mg Q4H PRN Administration AGITATION Ibuprofen 400 mg 08/27/16 09:37 09/28/16 21:44 Motrin - PO 400 mg Q6H PRN Administration SEVERE PAIN Lidocaine 1 patch 09/16/16 12:00 09/28/16 10:31 Lidoderm Patch - TP 1 patch DAILY MONTSE Administration Loperamide HCl 4 mg 08/27/16 09:37 Imodium - PO Q6H PRN DIARRHEA Magnesium Citrate 300 ml 08/27/16 09:37 Citroma - PO Q48H PRN CONSTIPATION Magnesium Hydroxide 30 ml 08/27/16 09:37 Milk Of Magnesia - PO DAILY PRN CONSTIPATION Multivit/Folic Acid/Iron 1 tab 08/27/16 10:00 09/28/16 10:31 Vitamins (Sjr) - PO 1 tab DAILY MONTSE Administration Pseudoephedrine/Triprolidine 1 combo 08/27/16 09:37 09/04/16 09:02 Actifed - PO 1 combo TID PRN Administration NASAL CONGESTION Thiamine HCl 100 mg 08/27/16 22:00 09/28/16 21:43 Vitamin B1 - PO 100 mg HS MONTSE Administration Current Side Effect: No Lab tests ordered: No Lab tests reviewed: Yes Provider note:: Patient has completed today his treatment and met his goals, will continue to address his issues at [facility] outpatient treatment program. He gained insights into his addiction and motivated to continue maintain abstinence. Patient wa encouraged to utilize all supports available to prevent relapses. He is stable for discharge. Total face to face time:: 30 Mental Status Exam - Mental Status Exam Alert and Oriented to: Time, Place, Person Cognitive Function: Good Patient Appearance: Well Groomed Mood: Hopeful Affect: Euthymic Patient Behavior: Appropriate, Cooperative Speech Pattern: Clear, Appropriate Voice Loudness: Normal Thought Process: Intact Thought Disorder: Not Present Hallucinations: Denies Suicidal Ideation: Denies Homicidal Ideation: Denies Insight/Judgement: Fair Sleep: Well Appetite: Good Muscle strength/Tone: Normal Gait/Station: Normal Psychiatric Treatment Plan - Problem List (1) Alcohol dependence Current Visit: Yes (2) Nicotine dependence Current Visit: Yes Qualifiers: Nicotine product type: cigarettes Substance use status: uncomplicated Qualified Code(s): F17.210 - Nicotine dependence, cigarettes, uncomplicated
[2016-09-29] MEDS: PRENATAL VITAMINS W/ FOLIC ACID TABLET (FP) PO SCH (09:56)
[2016-09-29] MEDS: LIDOCAINE 5% TOPICAL PATCH TP SCH (09:56)
== END 2016-09-29 11:00 | disposition home or self-care (01) | DRG 895 ==
LOC: YASAS 08:53 → Y3N 10:32 → Y5N 09-01 12:06
PROVIDERS: ADMIT Internal Medicine; ATTEND Psychiatry & Neurology Psychiatry
PROC: HZ2ZZZZ Detoxification Services for Substance Abuse Treatment (ICD-10-PCS; principal; 2016-08-27)
PROC: HZ42ZZZ Group Counseling for Substance Abuse Treatment, Cognitive-Behavioral (ICD-10-PCS; 2016-09-01)
DX: F10.230 Alcohol dependence with withdrawal, uncomplicated (principal); F17.210 Nicotine dependence, cigarettes, uncomplicated; J20.9 Acute bronchitis, unspecified
CPT/HCPCS: 36415; 71010-TC; 80053; 81003; 85027; 86593; 93005; 93010; 94640

== ENCOUNTER 2017-02-08 10:22 | Inpatient (IN) | payer OTHER ==
[2017-02-08 12:30] VITALS: BMI 25.1
--- NOTE | 2017-02-08 15:41 | HP ---
CIWA Score - CIWA Score Nausea/Vomitin Muscle Tremors: 3 Anxiety: 4-Mod. Anxious/Guarded Agitation: 3 Paroxysmal Sweats: 4-Forehead w/Sweat Beads Orientation: 0-Oriented Tacttile Disturbances: 0-None Auditory Disturbances: 2-Mild Harshness/Frighten Visual Disturbances: 0-None Headache: 0-None Present CIWA-Ar Total Score: 18 Admission ROS BHS - HPI Chief Complaint: "I came here because I have been drinking and I need to stop." Pt. is here to Detox from Alcohol. Allergies/Adverse Reactions: Allergies Allergy/AdvReac Type Severity Reaction Status Date / Time Penicillins Allergy Severe Itching Verified 02/08/17 12:54 History of Present Illness: Pt. is a 76 YO male here to Detox from alcohol. Pt. has had 1 previous Detox admission at [facility]. Pt. had other Detox admissions at other locations ( [facility], [facility], [facility]), in the past. Exam Limitations: No Limitations - Ebola screening Have you traveled outside of the country in the last 21 days: No Have you had contact with anyone from an Ebola affected area: No Have you been sick,other than usual withdrawal symptoms: No Do you have a fever: No - Review of Systems Constitutional: Diaphoresis, Loss of Appetite, Malaise, Night Sweats, Changes in sleep EENT: reports: Other (Pt. has upper and lower dentures; pt. does not have either with him for this admisdsion. Pt. reports that he is okay to eat solid foods.) Respiratory: reports: SOB with Exertion Cardiac: reports: No Symptoms Reported GI: reports: Nausea, Poor Appetite, Vomiting : reports: No Symptoms Reported Musculoskeletal: reports: Back Pain Integumentary: reports: No Symptoms Reported Neuro: reports: Tremors Endocrine: reports: No Symptoms Reported Hematology: reports: No Symptoms Reported Psychiatric: reports: Judgement Intact, Mood/Affect Appropiate, Orientated x3, Agitated, Anxious Other Systems: Reviewed and Negative Patient History - Patient Medical History Hx Anemia: No Hx Asthma: No Hx Chronic Obstructive Pulmonary Disease (COPD): No Hx Cancer: No Hx Cardiac Disorders: No Hx Congestive Heart Failure: No Hx Hypertension: Yes (pt states it fluctuates.) Hx Hypercholesterolemia: No Hx Pacemaker: No HX Cerebrovascular Accident: No Hx Seizures: No Hx Dementia: No Hx Diabetes: No Hx Gastrointestinal Disorders: No Hx Liver Disease: No Hx Genitourinary Disorders: No Hx Sexually Transmitted Disorders: No Hx Renal Disease (ESRD): No Hx Thyroid Disease: No Hx Human Immunodeficiency Virus (HIV): No (NEGATIVE HISTORY.) Hx Hepatitis C: No (NEGATIVE HISTORY.) Hx Depression: No Hx Suicide Attempt: No (PATIENT DENIES CURRENT SI / HI.) Hx Bipolar Disorder: No Hx Schizophrenia: No Other Medical History: DENIES. - Patient Surgical History Past Surgical History: No Hx Neurologic Surgery: No Hx Cataract Extraction: No Hx Cardiac Surgery: No Hx Lung Surgery: No Hx Breast Surgery: No Hx Breast Biopsy: No Hx Abdominal Surgery: Yes (ABD. HERNIA REPAIR IN S) Hx Appendectomy: No Hx Cholecystectomy: No Hx Genitourinary Surgery: No Hx Section: No Hx Orthopedic Surgery: No Anesthesia Reaction: No - PPD History Previous Implant?: Yes Documented Results: Negative w/proof Implanted On Prior [facility] Admission?: Yes Date: 08/29/16 Results: 1 mm PPD to be Administered?: No - Reproductive History Patient is a Female of Child Bearing Age (11 -55 yrs old): No (PATIENT IS MALE.) - Smoking Cessation Smoking history: Current every day smoker Have you smoked in the past 12 months: Yes Aproximately how many cigarettes per day: 5 Cigars Per Day: 0 Hx Chewing Tobacco Use: No Initiated information on smoking cessation: Yes 'Breaking Loose' booklet given: 02/08/17 (GIVEN ON UNIT.) - Substance & Tx. History Hx Alcohol Use: Yes Hx Substance Use: Yes Substance Use Type: Alcohol Hx Substance Use Treatment: Yes (Previous Detox / Rehab admission at [facility]; Detox admssions other locations.) - Substances Abused Alcohol Route: Oral Frequency: Daily Amount used: 6pk beer/ 4 pints wine Age of first use: 13 Date of Last Use: 02/08/17 Family Disease History - Family Disease History Family Disease History: CA: Brother (one colon cancer - etoh), Other: Grandparent (snuff and beer - ), Father (no contact), Mother ( - old age, etoh), Brother Admission Physical Exam BHS - Vital Signs Vital Signs: Vital Signs - 24 hr 02/08/17 12:29 Temperature 96 F L Pulse Rate 115 H Respiratory 20 Rate Blood Pressure 144/79 - Physical General Appearance: Yes: No Apparent Distress, Nourished, Appropriately Dressed , Tremorous, Irritable, Sweating, Anxious (Patient reports that he occasionally uses Albuterol Ventolin Inhaler if he experiences minor SOB due to feeling anxious. Patient denies history of Asthma, COPD, Respiratory Disease.) HEENTM: Yes: Hearing grossly Normal, Normocephalic, Normal Voice, SEN, Pharynx Normal Respiratory: Yes: Chest Non-Tender, Lungs Clear, No Respiratory Distress, No Accessory Muscle Use Neck: Yes: No masses,lesions,Nodules, Supple, Trachea in good position Breast: Yes: Breast Exam Deferred Cardiology: Yes: Regular Rhythm, Regular Rate, S1, S2 Abdominal: Yes: Normal Bowel Sounds, Non Tender, Flat, Soft Genitourinary: Yes: Within Normal Limits Back: Yes: Decreased Range of Motion Musculoskeletal: Yes: Gait Steady, Back pain Extremities: Yes: Non-Tender, Tremors Neurological: Yes: Fully Oriented, Alert, Normal Mood/Affect, Normal Response Integumentary: Yes: Normal Color, Warm, Diaphoresis Lymphatic: Yes: Within Normal Limits - Diagnostic (1) Alcohol dependence with uncomplicated withdrawal Current Visit: Yes Status: Acute (2) Nicotine dependence Current Visit: Yes Status: Chronic Qualifiers: Nicotine product type: cigarettes Substance use status: uncomplicated Qualified Code(s): F17.210 - Nicotine dependence, cigarettes, uncomplicated (3) Hypertension Current Visit: Yes Status: Chronic Qualifiers: Hypertension type: essential hypertension Qualified Code(s): I10 - Essential (primary) hypertension Cleared for Admission S - Detox or Rehab [facility] Level of Care: Medically Managed Detox Regimen/Protocol: Librium [facility] Breath Alcohol Content Breath Alcohol Content: 0 Urine Drug Screen - Results Drug Screen Negative: No Urine Drug Screen Results: BZO-Benzodiazepines
[2017-02-08] MEDS ORDERED: MAGNESIUM CITRATE 300 ML BOTTLE PO PRN (16:08)
[2017-02-08] MEDS ORDERED: MAGNESIUM HYDROX 2400MG/30ML ORAL SUSPENSION 30 ML CUP PO PRN (16:08)
[2017-02-08] MEDS ORDERED: NICOTINE POLACRILEX 2 MG GUM BC PRN (16:08)
[2017-02-08] MEDS ORDERED: LOPERAMIDE HCL 2 MG CAPSULE PO PRN (16:08)
[2017-02-08] MEDS ORDERED: IBUPROFEN 400 MG TABLET (FP) PO PRN (16:08)
[2017-02-08] MEDS ORDERED: ACETAMINOPHEN 325 MG TABLET (FP) PO PRN (16:08)
[2017-02-08] MEDS ORDERED: guaiFENesin/D-METHORPHAN HB 10 ML UNIT-DOSE CUPS PO PRN (16:08)
[2017-02-08] MEDS ORDERED: P-EPHED 60MG/TRIPROLIDI 2.5MG TABLET PO PRN (16:08)
[2017-02-08] MEDS ORDERED: chlordiazePOXIDE HCL 25 MG CAPSULE PO PRN (16:08)
[2017-02-08] MEDS ORDERED: hydrOXYzine PAMOATE 50 MG CAPSULE (FP) PO PRN (16:08)
[2017-02-08] MEDS ORDERED: MENTHOL/PHENOL 1 EACH UD MM PRN (16:08)
[2017-02-08] MEDS ORDERED: MAG HYDROX/AL HYDROX/SIMETH 30 ML UNIT-DOSE CUP PO PRN (16:08)
[2017-02-08] MEDS ORDERED: ALBUTEROL SO4 6.7 GM HFA INHALER IH PRN (16:11)
[2017-02-08] MEDS ORDERED: chlordiazePOXIDE HCL 25 MG CAPSULE PO ONE (16:45)
[2017-02-08] MEDS: LIDOCAINE 5% TOPICAL PATCH TP SCH (17:37)
[2017-02-08] MEDS: chlordiazePOXIDE HCL 25 MG CAPSULE PO SCH ×2 (17:37→22:19)
[2017-02-08] MEDS: FUROSEMIDE 40 MG TABLET (FP) PO SCH (17:38)
[2017-02-08] MEDS: THIAMINE HCL 100 MG TABLET (FP) PO SCH (22:19)
[2017-02-08] MEDS: LIDOCAINE PATCH REMOVAL MC SCH (22:19)
[2017-02-08] MEDS: diphenhydrAMINE HCL 50 MG CAPSULE PO PRN (22:22)
[2017-02-09 01:30] LABS: URINE APPEARANCE CLEAR; URINE BILIRUBIN NEGATIVE (NEGATIVE); URINE BLOOD NEGATIVE (NEGATIVE); URINE COLOR STRAW; URINE GLUCOSE (UA) NEGATIVE (NEGATIVE); URINE KETONE NEGATIVE (NEGATIVE); URINE LEUK ESTERASE NEGATIVE (NEGATIVE); URINE NITRITE NEGATIVE (NEGATIVE); URINE PROTEIN NEGATIVE (NEGATIVE); URINE UROBILINOGEN NEGATIVE mg/dL (0.2-1.0)
[2017-02-09] MEDS: chlordiazePOXIDE HCL 25 MG CAPSULE PO SCH ×4 (06:24→22:41)
[2017-02-09 09:56] LABS: MCH 30.1 pg (25.7-33.7); MCHC 33.1 g/dl (32.0-35.9); MEAN CELL VOLUME 90.8 fl (80-96); MEAN PLT VOLUME 8.1 fl (7.5-11.1); PLATELET COUNT 273 K/MM3 (134-434); RDW 14.5 % (11.9-15.9); WHITE BLOOD COUNT 8.1 K/mm3 (4.0-10.0)
[2017-02-09 10:21] LABS: ALBUMIN 3.9 g/dl (3.4-5.0); ALK PHOS 85 U/L (45-117); ANION GAP 12 (8-16); BILIRUBIN,TOTAL 0.8 mg/dL (0.2-1.0); CALCIUM 8.9 mg/dL (8.5-10.1); CO2 23 mmol/L (21-32); GLUCOSE,RANDOM 117 mg/dL (74-106); SGOT/AST 41 U/L (15-37); SGPT/ALT 32 U/L (12-78); TOT PROT 7.4 g/dl (6.4-8.2)
[2017-02-09] MEDS: PRENATAL VITAMINS W/ FOLIC ACID TABLET (FP) PO SCH (10:24)
[2017-02-09] MEDS: FUROSEMIDE 40 MG TABLET (FP) PO SCH (10:24)
[2017-02-09] MEDS: LIDOCAINE 5% TOPICAL PATCH TP SCH (10:25)
--- NOTE | 2017-02-09 13:29 | EKG ---
Test Reason : Blood Pressure : / mmHG Vent. Rate : 106 BPM Atrial Rate : 106 BPM P-R Int : 194 ms QRS Dur : 086 ms QT Int : 354 ms P-R-T Axes : 063 038 045 degrees QTc Int : 470 ms SINUS TACHYCARDIA WITH PREMATURE ATRIAL COMPLEXES OTHERWISE NORMAL ECG WHEN COMPARED WITH ECG OF 27-AUG-2016 11:48, PREMATURE ATRIAL COMPLEXES ARE NOW PRESENT NONSPECIFIC T WAVE ABNORMALITY NOW EVIDENT IN INFERIOR LEADS Confirmed by CARLENE MARTINO, JAMESON ([id number]) on 02/09/2017 1:29:09 PM Referred By: Confirmed By:JAMESON CONCEPCION MD
--- NOTE | 2017-02-09 13:44 | PN ---
S CIWA - CIWA Score Nausea/Vomitin-Mild Nausea/No Vomiting Muscle Tremors: 3 Anxiety: 4-Mod. Anxious/Guarded Agitation: 4-Moderately Restless Paroxysmal Sweats: 2 Orientation: 0-Oriented Tacttile Disturbances: 2-Mild Itch/Numbness/Burn Auditory Disturbances: 0-None Visual Disturbances: 0-None Headache: 0-None Present CIWA-Ar Total Score: 16 BHS Progress Note (SOAP) Subjective: Body Aches, Anxious, Tremors. Objective: PT. A & O X 3, OBSERVED AMBULATING ON UNIT. NO ACUTE DISTRESS. 02/09/17 13:42 Vital Signs Temperature 97.8 F 02/09/17 10:21 Pulse Rate 93 H 02/09/17 10:21 Respiratory Rate 20 02/09/17 10:21 Blood Pressure 156/79 02/09/17 10:21 O2 Sat by Pulse Oximetry (%) Laboratory Tests 02/08/17 02/09/17 02/09/17 23:42 06:15 06:15 WBC 8.1 D RBC 4.25 Hgb 12.8 Hct 38.5 MCV 90.8 MCH 30.1 MCHC 33.1 RDW 14.5 Plt Count 273 MPV 8.1 Sodium 138 Potassium 3.7 Chloride 103 Carbon Dioxide 23 Anion Gap 12 BUN 16 D Creatinine 1.0 D Creat Clearance w eGFR > 60 Random Glucose 117 H D Calcium 8.9 Total Bilirubin 0.8 D AST 41 H ALT 32 D Alkaline Phosphatase 85 Total Protein 7.4 Albumin 3.9 Urine Color Straw Urine Appearance Clear Urine pH 5.0 Ur Specific [place] <= 1.005 Urine Protein Negative Urine Glucose (UA) Negative Urine Ketones Negative Urine Blood Negative Urine Nitrite Negative Urine Bilirubin Negative Urine Urobilinogen Negative RPR Titer 02/09/17 06:15 WBC RBC Hgb Hct MCV MCH MCHC RDW Plt Count MPV Sodium Potassium Chloride Carbon Dioxide Anion Gap BUN Creatinine Creat Clearance w eGFR Random Glucose Calcium Total Bilirubin AST ALT Alkaline Phosphatase Total Protein Albumin Urine Color Urine Appearance Urine pH Ur Specific [place] Urine Protein Urine Glucose (UA) Urine Ketones Urine Blood Urine Nitrite Urine Bilirubin Urine Urobilinogen RPR Titer Nonreactive LABS NOTED. Assessment: 02/09/17 13:43 WITHDRAWAL SYMPTOMS. Plan: CONTINUE DETOX. PRN FLEXERIL FOR BODY ACHES / MUSCLE SPASMS.
[2017-02-09] MEDS: IBUPROFEN 600 MG TABLET (FP) PO PRN ×2 (14:11→22:42)
[2017-02-09] MEDS: THIAMINE HCL 100 MG TABLET (FP) PO SCH (22:41)
[2017-02-09] MEDS: diphenhydrAMINE HCL 50 MG CAPSULE PO PRN (22:41)
[2017-02-09] MEDS: LIDOCAINE PATCH REMOVAL MC SCH (22:42)
[2017-02-10] MEDS: chlordiazePOXIDE HCL 25 MG CAPSULE PO SCH ×2 (05:14→10:56)
[2017-02-10] MEDS: IBUPROFEN 600 MG TABLET (FP) PO PRN ×2 (05:15→15:33)
[2017-02-10] MEDS: FUROSEMIDE 40 MG TABLET (FP) PO SCH (10:56)
[2017-02-10] MEDS: LIDOCAINE 5% TOPICAL PATCH TP SCH (10:56)
[2017-02-10] MEDS: PRENATAL VITAMINS W/ FOLIC ACID TABLET (FP) PO SCH (10:56)
--- NOTE | 2017-02-10 12:55 | PN ---
S CIWA - CIWA Score Nausea/Vomitin-Mild Nausea/No Vomiting Muscle Tremors: 5 Anxiety: 4-Mod. Anxious/Guarded Agitation: 3 Paroxysmal Sweats: 3 Orientation: 0-Oriented Tacttile Disturbances: 2-Mild Itch/Numbness/Burn Auditory Disturbances: 0-None Visual Disturbances: 0-None Headache: 0-None Present CIWA-Ar Total Score: 18 BHS Progress Note (SOAP) Subjective: Tremors, Body Aches, sweating. Objective: PT. A & O X 3, OBSERVED AMBULATING ON UNIT. NO ACUTE DISTRESS. PT. DENIES CHEST PAIN. 02/10/17 12:53 Vital Signs Temperature 97.0 F L 02/10/17 11:19 Pulse Rate 82 02/10/17 11:19 Respiratory Rate 17 02/10/17 11:19 Blood Pressure 145/74 02/10/17 11:19 O2 Sat by Pulse Oximetry (%) Laboratory Tests 02/08/17 02/09/17 02/09/17 23:42 06:15 06:15 WBC 8.1 D RBC 4.25 Hgb 12.8 Hct 38.5 MCV 90.8 MCH 30.1 MCHC 33.1 RDW 14.5 Plt Count 273 MPV 8.1 Sodium 138 Potassium 3.7 Chloride 103 Carbon Dioxide 23 Anion Gap 12 BUN 16 D Creatinine 1.0 D Creat Clearance w eGFR > 60 Random Glucose 117 H D Calcium 8.9 Total Bilirubin 0.8 D AST 41 H ALT 32 D Alkaline Phosphatase 85 Total Protein 7.4 Albumin 3.9 Urine Color Straw Urine Appearance Clear Urine pH 5.0 Ur Specific [place] <= 1.005 Urine Protein Negative Urine Glucose (UA) Negative Urine Ketones Negative Urine Blood Negative Urine Nitrite Negative Urine Bilirubin Negative Urine Urobilinogen Negative RPR Titer 02/09/17 06:15 WBC RBC Hgb Hct MCV MCH MCHC RDW Plt Count MPV Sodium Potassium Chloride Carbon Dioxide Anion Gap BUN Creatinine Creat Clearance w eGFR Random Glucose Calcium Total Bilirubin AST ALT Alkaline Phosphatase Total Protein Albumin Urine Color Urine Appearance Urine pH Ur Specific [place] Urine Protein Urine Glucose (UA) Urine Ketones Urine Blood Urine Nitrite Urine Bilirubin Urine Urobilinogen RPR Titer Nonreactive LABS NOTED. 02/10/17 12:55 Assessment: 02/10/17 12:53 WITHDRAWAL SYMPTOMS. Plan: CONTINUE DETOX. CONTINUE TO MONITOR BP.
[2017-02-10] MEDS: chlordiazePOXIDE 5 MG CAPSULE PO SCH ×2 (17:29→22:23)
[2017-02-10] MEDS: diphenhydrAMINE HCL 50 MG CAPSULE PO PRN (22:23)
[2017-02-10] MEDS: LIDOCAINE PATCH REMOVAL MC SCH (22:23)
[2017-02-10] MEDS: THIAMINE HCL 100 MG TABLET (FP) PO SCH (22:23)
[2017-02-11] MEDS: chlordiazePOXIDE 5 MG CAPSULE PO SCH ×2 (05:49→10:33)
[2017-02-11] MEDS: IBUPROFEN 600 MG TABLET (FP) PO PRN ×2 (07:27→21:08)
[2017-02-11] MEDS: FUROSEMIDE 40 MG TABLET (FP) PO SCH (10:33)
[2017-02-11] MEDS: PRENATAL VITAMINS W/ FOLIC ACID TABLET (FP) PO SCH (10:33)
[2017-02-11] MEDS: LIDOCAINE 5% TOPICAL PATCH TP SCH (11:05)
[2017-02-11] MEDS: chlordiazePOXIDE HCL 10 MG CAPSULE PO SCH ×2 (17:35→22:08)
--- NOTE | 2017-02-11 19:24 | PN ---
BHS Progress Note (SOAP) Subjective: Body Aches, Anxious. Objective: PT. A & O X 3, OBSERVED AMBULATING ON UNIT. NO ACUTE DISTRESS. PT. DENIES CHEST PAIN. 02/11/17 19:22 Vital Signs Temperature 98.2 F 02/11/17 18:09 Pulse Rate 85 02/11/17 18:09 Respiratory Rate 18 02/11/17 18:09 Blood Pressure 115/60 02/11/17 18:09 O2 Sat by Pulse Oximetry (%) Laboratory Tests 02/08/17 02/09/17 02/09/17 23:42 06:15 06:15 WBC 8.1 D RBC 4.25 Hgb 12.8 Hct 38.5 MCV 90.8 MCH 30.1 MCHC 33.1 RDW 14.5 Plt Count 273 MPV 8.1 Sodium 138 Potassium 3.7 Chloride 103 Carbon Dioxide 23 Anion Gap 12 BUN 16 D Creatinine 1.0 D Creat Clearance w eGFR > 60 Random Glucose 117 H D Calcium 8.9 Total Bilirubin 0.8 D AST 41 H ALT 32 D Alkaline Phosphatase 85 Total Protein 7.4 Albumin 3.9 Urine Color Straw Urine Appearance Clear Urine pH 5.0 Ur Specific [place] <= 1.005 Urine Protein Negative Urine Glucose (UA) Negative Urine Ketones Negative Urine Blood Negative Urine Nitrite Negative Urine Bilirubin Negative Urine Urobilinogen Negative RPR Titer 02/09/17 06:15 WBC RBC Hgb Hct MCV MCH MCHC RDW Plt Count MPV Sodium Potassium Chloride Carbon Dioxide Anion Gap BUN Creatinine Creat Clearance w eGFR Random Glucose Calcium Total Bilirubin AST ALT Alkaline Phosphatase Total Protein Albumin Urine Color Urine Appearance Urine pH Ur Specific Fowler Urine Protein Urine Glucose (UA) Urine Ketones Urine Blood Urine Nitrite Urine Bilirubin Urine Urobilinogen RPR Titer Nonreactive LABS NOTED. Assessment: 02/11/17 19:23 WITHDRAWAL SYMPTOMS. Plan: CONTINUE DETOX.
[2017-02-11] MEDS: CYCLOBENZAPRINE HCL 10 MG TABLET (FP) PO PRN (21:08)
[2017-02-11] MEDS: THIAMINE HCL 100 MG TABLET (FP) PO SCH (22:07)
[2017-02-11] MEDS: diphenhydrAMINE HCL 50 MG CAPSULE PO PRN (22:08)
[2017-02-11] MEDS: LIDOCAINE PATCH REMOVAL MC SCH (22:09)
[2017-02-12] MEDS: chlordiazePOXIDE HCL 10 MG CAPSULE PO SCH ×2 (05:38→10:26)
[2017-02-12] MEDS: IBUPROFEN 600 MG TABLET (FP) PO PRN ×2 (05:39→18:31)
[2017-02-12] MEDS: FUROSEMIDE 40 MG TABLET (FP) PO SCH (10:26)
[2017-02-12] MEDS: PRENATAL VITAMINS W/ FOLIC ACID TABLET (FP) PO SCH (10:26)
[2017-02-12] MEDS: LIDOCAINE 5% TOPICAL PATCH TP SCH (10:26)
--- NOTE | 2017-02-12 18:32 | PN ---
BHS Progress Note (SOAP) Subjective: LBP, sweating, nausea, interrupted sleep Objective: 02/12/17 18:31 Last Vital Signs Temp Pulse Resp BP Pulse Ox 98.1 F 93 H 18 147/77 02/12/17 18:24 02/12/17 18:24 02/12/17 18:24 02/12/17 18:24 Laboratory Tests 02/08/17 02/09/17 02/09/17 23:42 06:15 06:15 WBC 8.1 D RBC 4.25 Hgb 12.8 Hct 38.5 MCV 90.8 MCH 30.1 MCHC 33.1 RDW 14.5 Plt Count 273 MPV 8.1 Sodium 138 Potassium 3.7 Chloride 103 Carbon Dioxide 23 Anion Gap 12 BUN 16 D Creatinine 1.0 D Creat Clearance w eGFR > 60 Random Glucose 117 H D Calcium 8.9 Total Bilirubin 0.8 D AST 41 H ALT 32 D Alkaline Phosphatase 85 Total Protein 7.4 Albumin 3.9 Urine Color Straw Urine Appearance Clear Urine pH 5.0 Ur Specific [place] <= 1.005 Urine Protein Negative Urine Glucose (UA) Negative Urine Ketones Negative Urine Blood Negative Urine Nitrite Negative Urine Bilirubin Negative Urine Urobilinogen Negative RPR Titer 02/09/17 06:15 WBC RBC Hgb Hct MCV MCH MCHC RDW Plt Count MPV Sodium Potassium Chloride Carbon Dioxide Anion Gap BUN Creatinine Creat Clearance w eGFR Random Glucose Calcium Total Bilirubin AST ALT Alkaline Phosphatase Total Protein Albumin Urine Color Urine Appearance Urine pH Ur Specific [place] Urine Protein Urine Glucose (UA) Urine Ketones Urine Blood Urine Nitrite Urine Bilirubin Urine Urobilinogen RPR Titer Nonreactive Labs noted Assessment: 02/12/17 18:31 Withdrawal symptoms Plan: Continue detox
[2017-02-12] MEDS: LIDOCAINE PATCH REMOVAL MC SCH (22:14)
[2017-02-12] MEDS: THIAMINE HCL 100 MG TABLET (FP) PO SCH (22:14)
[2017-02-12] MEDS: diphenhydrAMINE HCL 50 MG CAPSULE PO PRN (22:15)
[2017-02-12] MEDS: CYCLOBENZAPRINE HCL 10 MG TABLET (FP) PO PRN (22:15)
[2017-02-13 06:05] VITALS: TEMP 98.2
[2017-02-13] MEDS: PRENATAL VITAMINS W/ FOLIC ACID TABLET (FP) PO SCH (09:15)
[2017-02-13] MEDS: IBUPROFEN 600 MG TABLET (FP) PO PRN (09:16)
[2017-02-13] MEDS: FUROSEMIDE 40 MG TABLET (FP) PO SCH (09:16)
[2017-02-13 09:40] VITALS: BP 146/80; PULSE 70
--- NOTE | 2017-02-13 10:36 | DS ---
[facility] Detox Discharge Summary Admission Date: 02/08/17 Discharge Date: 02/13/17 - History Present History: Alcohol Dependence Pertinent Past History: HTN - Physical Exam Results Vital Signs: Vital Signs Temperature 98.2 F 02/13/17 09:39 Pulse Rate 70 02/13/17 09:39 Respiratory Rate 18 02/13/17 09:39 Blood Pressure 146/80 02/13/17 09:39 O2 Sat by Pulse Oximetry (%) Pertinent Admission Physical Exam Findings: Withdrawal sx Laboratory Last Values WBC 8.1 K/mm3 (4.0-10.0) D 02/09/17 06:15 RBC 4.25 M/mm3 (4.00-5.60) 02/09/17 06:15 Hgb 12.8 GM/dL (11.7-16.9) 02/09/17 06:15 Hct 38.5 % (35.4-49) 02/09/17 06:15 MCV 90.8 fl (80-96) 02/09/17 06:15 MCH 30.1 pg (25.7-33.7) 02/09/17 06:15 MCHC 33.1 g/dl (32.0-35.9) 02/09/17 06:15 RDW 14.5 % (11.9-15.9) 02/09/17 06:15 Plt Count 273 K/MM3 (134-434) 02/09/17 06:15 MPV 8.1 fl (7.5-11.1) 02/09/17 06:15 Sodium 138 mmol/L (136-145) 02/09/17 06:15 Potassium 3.7 mmol/L (3.5-5.1) 02/09/17 06:15 Chloride 103 mmol/L (98-107) 02/09/17 06:15 Carbon Dioxide 23 mmol/L (21-32) 02/09/17 06:15 Anion Gap 12 (8-16) 02/09/17 06:15 BUN 16 mg/dL (7-18) D 02/09/17 06:15 Creatinine 1.0 mg/dL (0.7-1.3) D 02/09/17 06:15 Creat Clearance w eGFR > 60 (>60) 02/09/17 06:15 Random Glucose 117 mg/dL (74-106) H D 02/09/17 06:15 Calcium 8.9 mg/dL (8.5-10.1) 02/09/17 06:15 Total Bilirubin 0.8 mg/dL (0.2-1.0) D 02/09/17 06:15 AST 41 U/L (15-37) H 02/09/17 06:15 ALT 32 U/L (12-78) D 02/09/17 06:15 Alkaline Phosphatase 85 U/L (45-117) 02/09/17 06:15 Total Protein 7.4 g/dl (6.4-8.2) 02/09/17 06:15 Albumin 3.9 g/dl (3.4-5.0) 02/09/17 06:15 Urine Color Straw 02/08/17 23:42 Urine Appearance Clear 02/08/17 23:42 Urine pH 5.0 (5.0-8.0) 02/08/17 23:42 Ur Specific [place] <= 1.005 (1.005-1.025) 02/08/17 23:42 Urine Protein Negative (NEGATIVE) 02/08/17 23:42 Urine Glucose (UA) Negative (NEGATIVE) 02/08/17 23:42 Urine Ketones Negative (NEGATIVE) 02/08/17 23:42 Urine Blood Negative (NEGATIVE) 02/08/17 23:42 Urine Nitrite Negative (NEGATIVE) 02/08/17 23:42 Urine Bilirubin Negative (NEGATIVE) 02/08/17 23:42 Urine Urobilinogen Negative mg/dL (0.2-1.0) 02/08/17 23:42 RPR Titer Nonreactive (NONREACTIVE) 02/09/17 06:15 Labs noted - Treatment Hospital Course: Detox Protocol Followed, Detoxed Safely, Responded well, Discharged Condition Good Patient has Accepted a Rehab Referral to: 12 step meetings - Medication Discharge Medications: Ambulatory Orders Albuterol Sulfate Inhaler - [Ventolin Hfa Inhaler -] 2 inh PO Q4H PRN 02/08/17 Furosemide [Lasix -] 40 mg PO DAILY 02/08/17 - Diagnosis (1) Alcohol dependence with uncomplicated withdrawal Status: Acute (2) Hypertension Status: Chronic Qualifiers: Hypertension type: essential hypertension Qualified Code(s): I10 - Essential (primary) hypertension (3) Nicotine dependence Status: Chronic Qualifiers: Nicotine product type: cigarettes Substance use status: uncomplicated Qualified Code(s): F17.210 - Nicotine dependence, cigarettes, uncomplicated - AMA Did Patient Leave Against Medical Advice: No
== END 2017-02-13 09:43 | disposition home or self-care (01) | DRG 897 ==
LOC: YASAS 10:22 → Y3N 14:27
PROVIDERS: ADMIT Internal Medicine; ATTEND Internal Medicine
PROC: HZ2ZZZZ Detoxification Services for Substance Abuse Treatment (ICD-10-PCS; principal; 2017-02-08)
DX: F10.230 Alcohol dependence with withdrawal, uncomplicated (principal); F17.210 Nicotine dependence, cigarettes, uncomplicated; I10 Essential (primary) hypertension
CPT/HCPCS: 36415; 80053; 81003; 85027; 86593; 93005; 93010

== ENCOUNTER 2017-02-15 12:42 | Inpatient (IN) | payer OTHER ==
[2017-02-15 16:10] VITALS: BMI 25.1
--- NOTE | 2017-02-15 18:32 | HP ---
Admission ROS S - HPI Chief Complaint: I WANT TO GO TO REHAB Allergies/Adverse Reactions: Allergies Allergy/AdvReac Type Severity Reaction Status Date / Time Penicillins Allergy Severe Itching Verified 02/15/17 17:20 History of Present Illness: 76 YEARS OLD MALE WITH LONG HISTORY OF ALCOHOL NICOTINE DEPENDENCE HAS COPD DENIES MENTAL ILLNESS IS ADMITTED TO REHAB Exam Limitations: No Limitations - Ebola screening Have you traveled outside of the country in the last 21 days: No Have you had contact with anyone from an Ebola affected area: No Have you been sick,other than usual withdrawal symptoms: No Do you have a fever: No - Review of Systems Constitutional: Weight Stable EENT: reports: Dental Problems (NO TEETH) Respiratory: reports: SOB with Exertion, Productive cough (WHITE) Cardiac: reports: Edema (BOTH ANKLES) GI: reports: No Symptoms Reported : reports: No Symptoms Reported Musculoskeletal: reports: No Symptoms Reported Integumentary: reports: No Symptoms Reported Neuro: reports: No Symptoms reported Endocrine: reports: No Symptoms Reported Hematology: reports: No Symptoms Reported Psychiatric: reports: Judgement Intact, Mood/Affect Appropiate, Orientated x3 Other Systems: Reviewed and Negative Patient History - Patient Medical History Hx Anemia: No Hx Asthma: No Hx Chronic Obstructive Pulmonary Disease (COPD): Yes Hx Cancer: No Hx Cardiac Disorders: No Hx Congestive Heart Failure: Yes Hx Hypertension: No (pt states it fluctuates.) Hx Hypercholesterolemia: No Hx Pacemaker: No HX Cerebrovascular Accident: No Hx Seizures: No Hx Dementia: No Hx Diabetes: No Hx Gastrointestinal Disorders: No Hx Liver Disease: No Hx Genitourinary Disorders: No Hx Sexually Transmitted Disorders: No Hx Renal Disease (ESRD): No Hx Thyroid Disease: No Hx Human Immunodeficiency Virus (HIV): No (NEGATIVE HISTORY.) Hx Hepatitis C: No (NEGATIVE HISTORY.) Hx Depression: No Hx Suicide Attempt: No (PATIENT DENIES CURRENT SI / HI.) Hx Bipolar Disorder: No Hx Schizophrenia: No - Patient Surgical History Past Surgical History: Yes Hx Neurologic Surgery: No Hx Cataract Extraction: No Hx Cardiac Surgery: No Hx Lung Surgery: No Hx Breast Surgery: No Hx Breast Biopsy: No Hx Abdominal Surgery: Yes (ABD. HERNIA REPAIR IN 1970S) Hx Appendectomy: No Hx Cholecystectomy: No Hx Genitourinary Surgery: No Hx Orthopedic Surgery: No Anesthesia Reaction: No - PPD History Previous Implant?: Yes Documented Results: Negative w/proof Implanted On Prior [facility] Admission?: Yes Date: 08/29/16 Results: 1 mm PPD to be Administered?: No - Smoking Cessation Smoking history: Current every day smoker Have you smoked in the past 12 months: Yes Aproximately how many cigarettes per day: 5 Cigars Per Day: 0 Hx Chewing Tobacco Use: No Initiated information on smoking cessation: Yes 'Breaking Loose' booklet given: 02/15/17 - Substance & Tx. History Hx Alcohol Use: Yes Hx Substance Use: Yes Substance Use Type: Alcohol Hx Substance Use Treatment: Yes (02/08-02/13/17 [facility] - Substances Abused Alcohol Route: Oral Frequency: Daily Amount used: [id number] Age of first use: 13 Date of Last Use: 02/07/17 Family Disease History - Family Disease History Family Disease History: CA: Brother (one colon cancer - etoh), Other: Grandparent (snuff and beer - ), Father (no contact), Mother ( - old age, etoh), Brother Admission Physical Exam [facility] - Vital Signs Vital Signs: Vital Signs - 24 hr 02/15/17 16:08 Temperature 96 F L Pulse Rate 103 H Respiratory 20 Rate Blood Pressure 138/92 - Physical General Appearance: Yes: No Apparent Distress, Nourished, Appropriately Dressed HEENTM: Yes: Hearing grossly Normal, Normal ENT Inspection, Normocephalic, Normal Voice Respiratory: Yes: Chest Non-Tender, No Respiratory Distress, No Accessory Muscle Use, Rhonchi Neck: Yes: Supple, Trachea in good position Breast: Yes: Breasts Symetrical Cardiology: Yes: Regular Rhythm, S1, S2, Tachycardia Abdominal: Yes: Normal Bowel Sounds, Non Tender, Soft Genitourinary: Yes: Within Normal Limits Back: Yes: Normal Inspection Musculoskeletal: Yes: full range of Motion, Gait Steady, Back pain Extremities: Yes: Normal Inspection, Normal Range of Motion, Non-Tender, Swelling (BOTH ANKLES) Neurological: Yes: Fully Oriented, Alert, Motor Strength 5/5, Normal Response, Depressed Affect Integumentary: Yes: Warm Lymphatic: Yes: Within Normal Limits - Diagnostic (1) Alcohol dependence with uncomplicated withdrawal Current Visit: Yes Status: Acute (2) Nicotine dependence Current Visit: Yes Status: Acute Qualifiers: Nicotine product type: cigarettes Substance use status: in withdrawal Qualified Code(s): F17.213 - Nicotine dependence, cigarettes, with withdrawal (3) COPD (chronic obstructive pulmonary disease) Current Visit: Yes Status: Chronic Qualifiers: COPD type: emphysema Emphysema type: unilateral Qualified Code(s ): J43.0 - Unilateral pulmonary emphysema [MacLeod's syndrome] (4) CHF (congestive heart failure) Current Visit: Yes Status: Chronic Qualifiers: Congestive heart failure type: combined Congestive heart failure chronicity: chronic Qualified Code(s): I50.42 - Chronic combined systolic (congestive) and diastolic (congestive) heart failure (5) Positive PPD, treated Current Visit: Yes Status: Acute (6) Chronic back pain Current Visit: Yes Status: Chronic Qualifiers: Back pain location: low back pain Back pain laterality: bilateral Sciatica presence: without sciatica Qualified Code(s): M54.5 - Low back pain; G89.29 - Other chronic pain Cleared for Admission [facility] - Detox or Rehab [facility] Level of Care: Observation Bed Detox Regimen/Protocol: Not Applicable Claeared for Rehab Admission: Yes [facility] Breath Alcohol Content Breath Alcohol Content: 0 Urine Drug Screen - Results Drug Screen Negative: No Urine Drug Screen Results: BZO-Benzodiazepines, TCA-Tricyclic Antidepress Inpatient Rehab Admission - Initial Determination Are CD services needed?: Yes Free of communicable disease: Yes Not in need of hospitalization: Yes - Rehab Admission Criteria Previous failed treatment: Yes Poor recovery environment: Yes Comorbidities: Yes Lacks judgement: No Patient is meeting Inpatient Rehab admission criteria:: Yes
[2017-02-15] MEDS ORDERED: LOPERAMIDE HCL 2 MG CAPSULE PO PRN (18:39)
[2017-02-15] MEDS ORDERED: hydrOXYzine PAMOATE 50 MG CAPSULE (FP) PO PRN (18:39)
[2017-02-15] MEDS ORDERED: guaiFENesin/D-METHORPHAN HB 10 ML UNIT-DOSE CUPS PO PRN (18:39)
[2017-02-15] MEDS ORDERED: MAGNESIUM HYDROX 2400MG/30ML ORAL SUSPENSION 30 ML CUP PO PRN (18:39)
[2017-02-15] MEDS ORDERED: MENTHOL/PHENOL 1 EACH UD MM PRN (18:39)
[2017-02-15] MEDS ORDERED: MAGNESIUM CITRATE 300 ML BOTTLE PO PRN (18:39)
[2017-02-15] MEDS ORDERED: P-EPHED 60MG/TRIPROLIDI 2.5MG TABLET PO PRN (18:39)
[2017-02-15] MEDS ORDERED: ACETAMINOPHEN 325 MG TABLET (FP) PO PRN (18:39)
[2017-02-15] MEDS ORDERED: NICOTINE 14 MG/24 HOURS TOPICAL PATCH TD PRN (18:39)
[2017-02-15] MEDS ORDERED: NICOTINE POLACRILEX 2 MG GUM BC PRN (18:39)
[2017-02-15] MEDS ORDERED: MAG HYDROX/AL HYDROX/SIMETH 30 ML UNIT-DOSE CUP PO PRN (18:39)
[2017-02-15] MEDS ORDERED: ALBUTEROL SO4 6.7 GM HFA INHALER IH PRN (18:41)
[2017-02-15 21:21] LABS: URINE APPEARANCE CLEAR; URINE BILIRUBIN NEGATIVE (NEGATIVE); URINE BLOOD NEGATIVE (NEGATIVE); URINE COLOR YELLOW; URINE GLUCOSE (UA) NEGATIVE (NEGATIVE); URINE KETONE NEGATIVE (NEGATIVE); URINE LEUK ESTERASE NEGATIVE (NEGATIVE); URINE NITRITE NEGATIVE (NEGATIVE); URINE PROTEIN NEGATIVE (NEGATIVE); URINE UROBILINOGEN NEGATIVE mg/dL (0.2-1.0)
[2017-02-15] MEDS: NAPROXEN 500 MG TABLET (FP) PO SCH (22:05)
[2017-02-15] MEDS: BUDESONIDE/FORMETEROL FUMARATE 80/4.5 mcg INHALER IH SCH (22:05)
[2017-02-15] MEDS: THIAMINE HCL 100 MG TABLET (FP) PO SCH (22:05)
[2017-02-15] MEDS: LIDOCAINE PATCH REMOVAL MC SCH (22:06)
[2017-02-15] MEDS: METHYL SALICYLATE/MENTHOL OINT 30 GM TUBE TP SCH (22:06)
[2017-02-15] MEDS: diphenhydrAMINE HCL 50 MG CAPSULE PO PRN (22:06)
[2017-02-16] MEDS: BUDESONIDE/FORMETEROL FUMARATE 80/4.5 mcg INHALER IH SCH ×2 (10:55→22:06)
[2017-02-16] MEDS: PRENATAL VITAMINS W/ FOLIC ACID TABLET (FP) PO SCH (10:56)
[2017-02-16] MEDS: LIDOCAINE 5% TOPICAL PATCH TP SCH (10:56)
[2017-02-16] MEDS: FUROSEMIDE 40 MG TABLET (FP) PO SCH (10:56)
[2017-02-16] MEDS: NAPROXEN 500 MG TABLET (FP) PO SCH ×2 (10:56→22:05)
[2017-02-16] MEDS: METHYL SALICYLATE/MENTHOL OINT 30 GM TUBE TP SCH ×2 (10:58→22:06)
--- NOTE | 2017-02-16 13:24 | HP ---
Psychiatrist Admission - Data Date of interview: 02/16/17 Admission source: [facility] Identifying data: Second 5N inpatient rehabilitation admission for this 76 year old AA male who is childless, domiciled, unemployed and supported on SSI benefits. Medical History: COPD, CHF, Edema Both ankles and abdominal hernia repaired on 1969. Smokes cigarettes 5 a day. Psychiatric History: Denies history of psychiatric treatment Vital Signs: Vital Signs - 24 hr 02/15/17 02/15/17 02/16/17 16:08 22:52 01:06 Temperature 96 F L Pulse Rate 103 H 110 H Respiratory 20 18 18 Rate Blood Pressure 138/92 151/84 02/16/17 02/16/17 02/16/17 03:30 06:45 10:00 Temperature 97.0 F L Pulse Rate 91 H 87 Respiratory 18 18 Rate Blood Pressure 140/72 152/85 Allergies/Adverse Reactions: Allergies Allergy/AdvReac Type Severity Reaction Status Date / Time Penicillins Allergy Severe Itching Verified 02/16/17 07:13 Date of last physical exam: 02/16/17 Concur with the findings of this exam: Yes - Substance Abuse/Tx History Hx Alcohol Use: Yes Hx Substance Use: No Substance Use Type: Alcohol Hx Substance Use Treatment: Yes Mental Status Exam - Mental Status Exam Alert and Oriented to: Time, Place, Person Cognitive Function: Good Patient Appearance: Well Groomed Mood: Hopeful Affect: Appropriate, Mood Congruent Patient Behavior: Appropriate, Cooperative Speech Pattern: Clear, Appropriate Voice Loudness: Normal Thought Process: Intact, Goal Oriented Thought Disorder: Not Present Hallucinations: Denies Suicidal Ideation: Denies Homicidal Ideation: Denies Insight/Judgement: Fair Sleep: Fair Appetite: Fair Muscle strength/Tone: Normal Gait/Station: Normal Psychiatric Findings - Problem List ([place] 1, 2,3) (1) Nicotine dependence Current Visit: Yes Status: Acute Qualifiers: Nicotine product type: cigarettes Substance use status: in withdrawal Qualified Code(s): F17.213 - Nicotine dependence, cigarettes, with withdrawal (2) Alcohol dependence Current Visit: No Status: Acute - Initial Treatment Plan Initial Treatment Plan: will monitor progress as needed
[2017-02-16 13:52] LABS: MCH 30.6 pg (25.7-33.7); MCHC 33.7 g/dl (32.0-35.9); MEAN CELL VOLUME 90.8 fl (80-96); MEAN PLT VOLUME 7.4 fl (7.5-11.1); PLATELET COUNT 315 K/MM3 (134-434); RDW 14.4 % (11.9-15.9); WHITE BLOOD COUNT 5.3 K/mm3 (4.0-10.0)
[2017-02-16 14:02] LABS: ALBUMIN 4.1 g/dl (3.4-5.0); ALK PHOS 106 U/L (45-117); ANION GAP 8 (8-16); BILIRUBIN,TOTAL 0.6 mg/dL (0.2-1.0); CALCIUM 9.3 mg/dL (8.5-10.1); CO2 30 mmol/L (21-32); CREATININE 0.9 mg/dL (0.7-1.3); GLUCOSE,RANDOM 121 mg/dL (74-106); SGOT/AST 30 U/L (15-37); SGPT/ALT 30 U/L (12-78); TOT PROT 7.8 g/dl (6.4-8.2)
[2017-02-16] MEDS ORDERED: ALBUTEROL SO4 6.7 GM HFA INHALER IH ONE (14:02)
--- NOTE | 2017-02-16 16:01 | EKG ---
Test Reason : Blood Pressure : / mmHG Vent. Rate : 094 BPM Atrial Rate : 094 BPM P-R Int : 200 ms QRS Dur : 084 ms QT Int : 366 ms P-R-T Axes : 007 039 056 degrees QTc Int : 457 ms NORMAL SINUS RHYTHM NORMAL ECG WHEN COMPARED WITH ECG OF 08-FEB-2017 17:32, PREMATURE ATRIAL COMPLEXES ARE NO LONGER PRESENT NONSPECIFIC T WAVE ABNORMALITY NO LONGER EVIDENT IN INFERIOR LEADS Confirmed by CARLENE MARTINO, JAMESON ([id number]) on 02/16/2017 4:00:56 PM Referred By: Confirmed By:JAMESON CONCEPCION MD
[2017-02-16] MEDS: THIAMINE HCL 100 MG TABLET (FP) PO SCH (22:05)
[2017-02-16] MEDS: LIDOCAINE PATCH REMOVAL MC SCH (22:06)
[2017-02-17] MEDS: NAPROXEN 500 MG TABLET (FP) PO SCH ×2 (10:51→21:59)
[2017-02-17] MEDS: PRENATAL VITAMINS W/ FOLIC ACID TABLET (FP) PO SCH (10:51)
[2017-02-17] MEDS: LIDOCAINE 5% TOPICAL PATCH TP SCH (10:51)
[2017-02-17] MEDS: FUROSEMIDE 40 MG TABLET (FP) PO SCH (10:51)
[2017-02-17] MEDS: BUDESONIDE/FORMETEROL FUMARATE 80/4.5 mcg INHALER IH SCH ×2 (10:51→22:01)
[2017-02-17] MEDS: METHYL SALICYLATE/MENTHOL OINT 30 GM TUBE TP SCH ×2 (10:51→22:00)
[2017-02-17] MEDS: diphenhydrAMINE HCL 50 MG CAPSULE PO PRN (22:00)
[2017-02-17] MEDS: THIAMINE HCL 100 MG TABLET (FP) PO SCH (22:00)
[2017-02-17] MEDS: LIDOCAINE PATCH REMOVAL MC SCH (22:01)
[2017-02-18] MEDS: METHYL SALICYLATE/MENTHOL OINT 30 GM TUBE TP SCH ×2 (11:10→21:06)
[2017-02-18] MEDS: PRENATAL VITAMINS W/ FOLIC ACID TABLET (FP) PO SCH (11:10)
[2017-02-18] MEDS: BUDESONIDE/FORMETEROL FUMARATE 80/4.5 mcg INHALER IH SCH ×2 (11:10→21:05)
[2017-02-18] MEDS: NAPROXEN 500 MG TABLET (FP) PO SCH ×2 (11:10→21:05)
[2017-02-18] MEDS: FUROSEMIDE 40 MG TABLET (FP) PO SCH (11:10)
[2017-02-18] MEDS: LIDOCAINE 5% TOPICAL PATCH TP SCH (11:11)
[2017-02-18] MEDS: THIAMINE HCL 100 MG TABLET (FP) PO SCH (21:05)
[2017-02-18] MEDS: LIDOCAINE PATCH REMOVAL MC SCH (21:06)
[2017-02-18] MEDS: diphenhydrAMINE HCL 50 MG CAPSULE PO PRN (22:33)
[2017-02-19] MEDS: FUROSEMIDE 40 MG TABLET (FP) PO SCH (10:36)
[2017-02-19] MEDS: NAPROXEN 500 MG TABLET (FP) PO SCH ×2 (10:36→21:57)
[2017-02-19] MEDS: BUDESONIDE/FORMETEROL FUMARATE 80/4.5 mcg INHALER IH SCH ×2 (10:36→21:56)
[2017-02-19] MEDS: METHYL SALICYLATE/MENTHOL OINT 30 GM TUBE TP SCH ×2 (10:36→21:57)
[2017-02-19] MEDS: PRENATAL VITAMINS W/ FOLIC ACID TABLET (FP) PO SCH (10:36)
[2017-02-19] MEDS: LIDOCAINE 5% TOPICAL PATCH TP SCH (10:36)
[2017-02-19] MEDS: THIAMINE HCL 100 MG TABLET (FP) PO SCH (21:56)
[2017-02-19] MEDS: diphenhydrAMINE HCL 50 MG CAPSULE PO PRN (21:56)
[2017-02-19] MEDS: LIDOCAINE PATCH REMOVAL MC SCH (21:58)
[2017-02-20] MEDS: FUROSEMIDE 40 MG TABLET (FP) PO SCH (11:03)
[2017-02-20] MEDS: LIDOCAINE 5% TOPICAL PATCH TP SCH (11:04)
[2017-02-20] MEDS: METHYL SALICYLATE/MENTHOL OINT 30 GM TUBE TP SCH ×2 (11:04→21:44)
[2017-02-20] MEDS: PRENATAL VITAMINS W/ FOLIC ACID TABLET (FP) PO SCH (11:04)
[2017-02-20] MEDS: BUDESONIDE/FORMETEROL FUMARATE 80/4.5 mcg INHALER IH SCH ×2 (11:05→21:43)
[2017-02-20] MEDS: NAPROXEN 500 MG TABLET (FP) PO SCH ×2 (11:06→21:42)
[2017-02-20] MEDS: THIAMINE HCL 100 MG TABLET (FP) PO SCH (21:42)
[2017-02-20] MEDS: diphenhydrAMINE HCL 50 MG CAPSULE PO PRN (21:44)
[2017-02-20] MEDS: LIDOCAINE PATCH REMOVAL MC SCH (21:45)
[2017-02-21] MEDS: LIDOCAINE 5% TOPICAL PATCH TP SCH (10:40)
[2017-02-21] MEDS: METHYL SALICYLATE/MENTHOL OINT 30 GM TUBE TP SCH ×2 (10:40→22:12)
[2017-02-21] MEDS: FUROSEMIDE 40 MG TABLET (FP) PO SCH (10:40)
[2017-02-21] MEDS: NAPROXEN 500 MG TABLET (FP) PO SCH ×2 (10:41→22:10)
[2017-02-21] MEDS: BUDESONIDE/FORMETEROL FUMARATE 80/4.5 mcg INHALER IH SCH ×2 (10:41→22:23)
[2017-02-21] MEDS: PRENATAL VITAMINS W/ FOLIC ACID TABLET (FP) PO SCH (10:41)
[2017-02-21] MEDS: THIAMINE HCL 100 MG TABLET (FP) PO SCH (22:11)
[2017-02-21] MEDS: diphenhydrAMINE HCL 50 MG CAPSULE PO PRN (22:12)
[2017-02-21] MEDS: LIDOCAINE PATCH REMOVAL MC SCH (22:23)
[2017-02-22 07:19] VITALS: BP 145/73; PULSE 92; TEMP 98.3
[2017-02-22] MEDS: PRENATAL VITAMINS W/ FOLIC ACID TABLET (FP) PO SCH (09:23)
[2017-02-22] MEDS: FUROSEMIDE 40 MG TABLET (FP) PO SCH (09:23)
[2017-02-22] MEDS: NAPROXEN 500 MG TABLET (FP) PO SCH (09:23)
[2017-02-22] MEDS: METHYL SALICYLATE/MENTHOL OINT 30 GM TUBE TP SCH (09:23)
[2017-02-22] MEDS: LIDOCAINE 5% TOPICAL PATCH TP SCH (09:23)
[2017-02-22] MEDS: BUDESONIDE/FORMETEROL FUMARATE 80/4.5 mcg INHALER IH SCH (09:24)
--- NOTE | 2017-02-22 09:25 | PN ---
Psychiatric Progress Note Vital Signs: Vital Signs Period Temp Pulse Resp BP Sys/Guzmán Pulse Ox Last 24 Hr 98.3 F 89-92 18-18 145-153/73-79 Date of Session: 02/22/17 Chief Complaint:: discharge visit HPI: Patient addressed alcohol, nicotine dependence. ROS: OPD, CHF, Edema Both ankles medically managed. Current Medications: Active Medications Generic Name Dose Route Start Last Admin Trade Name Freq PRN Reason Stop Dose Admin Acetaminophen 650 mg 02/15/17 18:39 Tylenol - PO Q4H PRN PAIN Al Hydroxide/Mg Hydroxide 30 ml 02/15/17 18:39 Mylanta Oral Suspension - PO Q6H PRN DYSPEPSIA Albuterol Sulfate 2 puff 02/15/17 18:41 02/16/17 14:03 Ventolin Hfa Inhaler - IH 2 inh Q4H PRN Administration SHORT OF BREATH/WHEEZING Budesonide/Formoterol Fumarate 2 puff 02/15/17 22:00 02/21/17 22:23 Symbicort 80/4.5mcg - IH Not Given BID MONTSE Diphenhydramine HCl 50 mg 02/15/17 18:39 02/21/17 22:12 Benadryl - PO 50 mg HSMR1 PRN Administration INSOMNIA Eucalyptus/Menthol/Phenol/Sorbitol 1 each 02/15/17 18:39 Cepastat Lozenge - MM Q4H PRN SORE THROAT Furosemide 40 mg 02/16/17 10:00 02/21/17 10:40 Lasix - PO 40 mg DAILY MONTSE Administration Guaifenesin 10 ml 02/15/17 18:39 Robitussin Dm - PO Q6H PRN COUGH Hydroxyzine Pamoate 50 mg 02/15/17 18:39 Vistaril - PO Q4H PRN AGITATION Lidocaine 1 patch 02/16/17 10:00 02/21/17 10:40 Lidoderm Patch - TP 1 patch DAILY MONTSE Administration Loperamide HCl 4 mg 02/15/17 18:39 Imodium - PO Q6H PRN DIARRHEA Magnesium Citrate 300 ml 02/15/17 18:39 Citroma - PO Q48H PRN CONSTIPATION Magnesium Hydroxide 30 ml 02/15/17 18:39 Milk Of Magnesia - PO DAILY PRN CONSTIPATION Methyl Salicylate 1 applic 02/15/17 22:00 02/21/17 22:12 Mike-Vela - TP Not Given BID MONTSE Miscellaneous 1 each 02/15/17 22:00 02/21/17 22:23 Lidoderm Patch Removal MC Not Given DAILY@2200 MONTSE Naproxen 500 mg 02/15/17 22:00 02/21/17 22:10 Naprosyn - PO 500 mg BID MONTSE Administration Nicotine 14 mg 02/15/17 18:39 Nicoderm Patch - TD DAILY PRN WITHDRAWAL(CONT SUBST) Nicotine Polacrilex 2 mg 02/15/17 18:39 Nicorette Gum - BC Q2H PRN NICOTINE REPLACEMENT RX Multivit/Folic Acid/Iron 1 tab 02/16/17 10:00 02/21/17 10:41 Vitamins (Sjr) - PO 1 tab DAILY MONTSE Administration Pseudoephedrine/Triprolidine 1 combo 02/15/17 18:39 Actifed - PO TID PRN NASAL CONGESTION Thiamine HCl 100 mg 02/15/17 22:00 02/21/17 22:11 Vitamin B1 - PO 100 mg HS MONTSE Administration Current Side Effect: No Lab tests ordered: No Lab tests reviewed: Yes Provider note:: Patient requested to be discharged today, he completed 7 days, will continue to address his issues at [facility] outpatient treatment program. Patient was encouraged to continue maintain abstinence, he is stable for discharge today. Total face to face time:: 15 Mental Status Exam - Mental Status Exam Alert and Oriented to: Time, Place, Person Cognitive Function: Good Patient Appearance: Well Groomed Mood: Hopeful Affect: Appropriate, Mood Congruent Patient Behavior: Appropriate, Cooperative Speech Pattern: Clear, Appropriate Voice Loudness: Normal Thought Process: Intact, Goal Oriented Thought Disorder: Not Present Hallucinations: Denies Suicidal Ideation: Denies Homicidal Ideation: Denies Insight/Judgement: Fair Sleep: Fair Appetite: Fair Muscle strength/Tone: Normal Gait/Station: Normal Psychiatric Treatment Plan - Problem List (1) Nicotine dependence Current Visit: Yes Qualifiers: Nicotine product type: cigarettes Substance use status: in withdrawal Qualified Code(s): F17.213 - Nicotine dependence, cigarettes, with withdrawal (2) Alcohol dependence Current Visit: No
== END 2017-02-22 10:25 | disposition home or self-care (01) | DRG 895 ==
LOC: YASAS 12:42 → Y5N 19:12
PROVIDERS: ADMIT Psychiatry & Neurology Psychiatry; ATTEND Psychiatry & Neurology Psychiatry
PROC: HZ42ZZZ Group Counseling for Substance Abuse Treatment, Cognitive-Behavioral (ICD-10-PCS; principal; 2017-02-15)
DX: F10.20 Alcohol dependence, uncomplicated (principal); I50.42 Chronic combined systolic (congestive) and diastolic (congestive) heart failure; F17.213 Nicotine dependence, cigarettes, with withdrawal; J43.0 Unilateral pulmonary emphysema [MacLeod's syndrome]; R76.11 Nonspecific reaction to tuberculin skin test without active tuberculosis; R00.0 Tachycardia, unspecified; M54.5 Low back pain; G89.29 Other chronic pain
CPT/HCPCS: 36415; 80053; 81003; 85027; 86593; 93005; 93010